=== PATIENT | female | born 1955 | race Caucasian/White ===

== ENCOUNTER 2016-10-10 13:42 | Emergency (ER) | payer OTHER ==
[2016-10-10 13:48] VITALS: TEMP 97.9
[2016-10-10 14:53] LABS: COLOR PALE YELLOW; LEUKOCYTE ESTERASE,URINE TRACE (NEGATIVE); NITRITE,URINE NEGATIVE (NEGATIVE)
[2016-10-10] MEDS ORDERED: NS 1,000 ML IV ONE (14:53)
[2016-10-10] MEDS ORDERED: ONDANSETRON 4 MG/2 ML VIAL IVP ONE (14:53)
--- NOTE | 2016-10-10 14:59 | EDPHY ---
HPI/HX/ROS/PE/MDM Narrative: CHIEF COMPLAINT: Chronic flank pain HPI: The patient is a 61-year-old female with extensive history of chronic pain related to frequent nephrolithiasis and medullary sponge kidney. She has been admitted to the hospital several times for issues related to this. She reports approximately 2 weeks of severe pain which he describes as peeing razor blades and and vomiting. She states she was seen by her primary physician Dr. Ephraim Navas, who diagnosed her with UTI and started her on a week long course of Cipro. She states she has been compliant with this but her symptoms have not improved. She denies fever. She states pain is bilateral. She denies trauma. She states this pain is similar to prior chronic pain. She states that she switched to a new paint preparer who has rearranged her pain control regimen approximately 3 weeks ago. She is currently using fentanyl patches with oxycodone for breakthrough pain. REVIEW OF SYSTEMS: Aside from elements discussed in the HPI, a comprehensive 10-point review of systems was reviewed and is negative. PMH: Includes: Medullary sponge kidney, chronic pain syndrome, thyroid disease. SOCIAL HISTORY: . Primary physicians Dr. Dee. Patient denies drug abuse. PHYSICAL EXAM: General:Patient is alert, in no acute distress. She alternates between moaning and crying with rapid speech with no apparent discomfort. ENT:Eyes are normal to inspection. ENT inspection normal. Neck: Normal inspection. Full range of motion. Respiratory:No respiratory distress. Breath sounds normal bilaterally. Cardiovascular: Regular rate and rhythm. Strong peripheral pulses. Normal cap refill. Abdomen:The abdomen is nontender to palpation. There are no peritoneal signs. There are normal bowel sounds. Back: Extensive ecchymosis is noted primarily to the right flank, which patient states is secondary to heating pad use. Diffuse generalized tenderness to palpation. Stands and gets out of bed without apparent discomfort or limited ROM. Skin: Normal color. No rash. Warm and dry. Extremities: Normal appearance. Full range of motion. Neuro: Oriented x3. Normal motor function. Normal sensory function. ED Course: Reviewed urine culture report from [facility] dated 10/01/16. Results showed pansensitive e.coli. Study: Ultrasound of the: Kidneys Indication: Flank pain Results: US scan of the kidneys was obtained. The results of the study are 1. No evidence of hydronephrosis. 2. Bilateral nonobstructive nephrolithiasis. 3. No significant post void residual. The study was read by the radiologist, Dr. Avila. I viewed the images myself on the PACS system. MDM: This patient presents with exacerbation of chronic flank pain. According to records received from her primary care physician's office, she apparently did have a urinary tract infection approximately 10 days ago, but this grew out pansensitive E coli and she was treated with Cipro. Her urinalysis today shows only trace leukocyte esterase and I do not think that she has a lakhwinder urinary tract infection at this point. She has not completed her course of Cipro. We will send the urine for culture. The patient underwent an ultrasound which reveals no sign of urinary obstruction. I explained all these findings to the patient in detail but she is very upset. It sounds like she is primarily upset with the fact that her new pain specialist has altered her pain regimen. She has requested additional pain medicine but I explained to her that it is against our policy to prescribe narcotics for chronic pain patients and that she would need to go through her pain specialist for any additions or changes. She is very upset and states that this all visit was a waste of time. I explained to her and her that I disagreed, that it is important that we ensured that she does not have urosepsis or urinary obstruction, which we were able to do. She again asked for additional pain medicine. She again alternated between moaning and complaining of severe pain followed by completely normal affect. After again refusing requests for additional pain medicine she then demanded that we speak to someone in the hospital about the fact that apparently no one placed in allergy band on her arm. Following this episode, the nurse attempted to discharge patient but patient refused to leave the ED until she was given additional narcotics. This request was denied. The patient was disruptive and disrespectful to multiple staff members. - Data Points Laboratory Results: Laboratory Results 10/10/16 15:01 10/10/16 15:01 10/10/16 10/10/16 10/10/16 15: 15: 14:13 WBC 10.64 10^3/uL H 10^3/uL (3.80-9.50) RBC 5.62 10^6/uL H 10^6/uL (4.18-5.33) Hgb 17.0 g/dL H g/dL (12.6-16.3) Hct 49.8 % H % (38.0-47.0) MCV 88.6 fL fL (81.5-99.8) MCH 30.2 pg pg (27.9-34.1) MCHC 34.1 g/dL g/dL (32.4-36.7) RDW 13.7 % % (11.5-15.2) Plt Count 291 10^3/uL 10^3/uL (150-400) MPV 10.2 fL fL (8.7-11.7) Neut % (Auto) 64.8 % % (39.3-74.2) Lymph % (Auto) 27.6 % % (15.0-45.0) [place] % (Auto) 5.7 % % (4.5-13.0) Eos % (Auto) 0.7 % % (0.6-7.6) Baso % (Auto) 0.8 % % (0.3-1.7) Nucleat RBC Rel Count 0.0 % % (0.0-0.2) Absolute Neuts (auto) 6.89 10^3/uL H 10^3/uL (1.70-6.50) Absolute Lymphs (auto) 2.94 10^3/uL 10^3/uL (1.00-3.00) Absolute Monos (auto) 0.61 10^3/uL 10^3/uL (0.30-0.80) Absolute Eos (auto) 0.07 10^3/uL 10^3/uL (0.03-0.40) Absolute Basos (auto) 0.09 10^3/uL 10^3/uL (0.02-0.10) Absolute Nucleated RBC 0.00 10^3/uL 10^3/uL (0-0.01) Immature Gran % 0.4 % % (0.0-1.1) Immature Gran # 0.04 10^3/uL 10^3/uL (0.00-0.10) Sodium 143 mEq/L mEq/L (134-144) Potassium 3.8 mEq/L mEq/L (3.5-5.2) Chloride 107 mEq/L mEq/L (97-110) Carbon Dioxide 22 mEq/l mEq/l (22-31) Anion Gap 14 mEq/L mEq/L (8-16) BUN 6 mg/dL L mg/dL (7-23) Creatinine 0.8 mg/dL mg/dL (0.6-1.0) Estimated GFR > 60 Glucose 104 mg/dL H mg/dL (70-100) Calcium 10.7 mg/dL H mg/dL (8.5-10.4) Phosphorus 3.3 mg/dL mg/dL (2.5-4.5) Lipase 95.0 IU/L IU/L (23-300) Urine Color PALE YELLOW Urine Appearance CLEAR Urine pH 5.0 (5.0-7.5) Ur Specific [place] 1.003 (1.002-1.030) Urine Protein NEGATIVE (NEGATIVE) Urine Ketones NEGATIVE (NEGATIVE) Urine Blood NEGATIVE (NEGATIVE) Urine Nitrate NEGATIVE (NEGATIVE) Urine Bilirubin NEGATIVE (NEGATIVE) Urine Urobilinogen NEGATIVE EU EU (0.2-1.0) Ur Leukocyte Esterase TRACE H (NEGATIVE) Urine RBC 1-3 /hpf /hpf (0-3) Urine WBC 3-5 /hpf H /hpf (0-3) Ur Epithelial Cells TRACE /lpf /lpf (NONE-1+) Urine Bacteria TRACE /hpf H /hpf (NONE SEEN) Ur Culture Indicated? INDICATED H (NI) Urine Glucose NEGATIVE (NEGATIVE) Medications Given: Discontinued Medications Sodium Chloride (Ns) 1,000 mls @ 0 mls/hr IV ONCE ONE PRN Reason: Wide Open Stop: 10/10/16 14:54 Last Admin: 10/10/16 15:06 Dose: 1,000 mls Ondansetron HCl (Zofran) 4 mg IVP EDNOW ONE Stop: 10/10/16 14:54 Last Admin: 10/10/16 15:07 Dose: 4 mg Oxycodone/Acetaminophen (Percocet 5/325) 2 tab PO EDNOW ONE Stop: 10/10/16 16:55 Last Admin: 10/10/16 17:08 Dose: 2 tab General Time Seen by Provider: 10/10/16 14:38 Initial Vital Signs: Initial Vital Signs Temperature (C) 36.6 C 10/10/16 13:45 Heart Rate 120 H 10/10/16 13:45 Respiratory Rate 16 10/10/16 13:45 Blood Pressure 163/116 H 10/10/16 13:45 O2 Sat (%) 96 10/10/16 13:45 O2 Delivery Mode Room Air Allergies/Adverse Reactions: levofloxacin [From Levaquin] Allergy (Verified 10/10/16 13:43) Sulfa (Sulfonamide Antibiotics) Allergy (Verified 10/10/16 13:43) Home Medications: Medication Instructions Recorded Ibuprofen [Motrin (*)] 400 mg PO DAILY PRN 09/03/14 Levothyroxine [Synthroid 50 mcg 50 mcg PO DAILY06 09/03/14 (*)] Diazepam [Valium 10 MG (*)] 10 mg PO Q6 #45 tab 05/27/16 Promethazine HCl [Phenergan 25mg 25 - 50 mg PO Q6 #90 tab 05/27/16 (*)] oxyCODONE IR [Oxycodone Ir (*)] 30 mg PO Q8 #45 tab 05/27/16 Departure - Departure Disposition: Home, Routine, Self-Care Clinical Impression: Chronic pain, Nephrolithiasis Condition: Good Instructions: Chronic Pain (ED) Additional Instructions: Follow-up with your paint preparer this evening if possible. Follow -up with your primary doctor on Friday. Return to the ED for fever, difficulty urinating or other concerns. Referrals: Ephraim Navas MD [Primary Care Provider] - As per Instructions
[2016-10-10 15:11] LABS: % IMMATURE GRANULYOCYTES 0.4 % (0.0-1.1); ABSOLUTE IMMATURE GRANULOCYTES 0.04 10^3/uL (0.00-0.10); ADD DIFF? NO; ADD MORPH? NO; ADD SCAN? NO; ATYPICAL LYMPHOCYTE FLAG 0 (0-99); FRAGMENT RBC FLAG 0 (0-99); HEMATOCRIT 49.8 % (38.0-47.0); LEFT SHIFT FLG 0 (0-99); LIPEMIA HEMOLYSIS FLAG 90 (0-99); MEAN CELL HEMOGLOBIN 30.2 pg (27.9-34.1); MEAN CELL HEMOGLOBIN CONCENTR. 34.1 g/dL (32.4-36.7); MEAN CELL VOLUME 88.6 fL (81.5-99.8); MEAN PLATELET VOLUME 10.2 fL (8.7-11.7); PLATELET CLUMPS FLAG 0 (0-99); PLATELET COUNT 291 10^3/uL (150-400); RED BLOOD CELL COUNT 5.62 10^6/uL (4.18-5.33); RED CELL DISTRIBUTION WIDTH 13.7 % (11.5-15.2)
[2016-10-10 15:11] LABS: BACTERIA TRACE /hpf (NONE SEEN)
[2016-10-10 15:39] LABS: ANION GAP 14 mEq/L (8-16); CALCIUM 10.7 mg/dL (8.5-10.4); CARBON DIOXIDE 22 mEq/l (22-31); CHLORIDE 107 mEq/L (97-110); CREATININE 0.8 mg/dL (0.6-1.0); GLOMERULAR FILTRATION RATE > 60; GLUCOSE 104 mg/dL (70-100); POTASSIUM 3.8 mEq/L (3.5-5.2); SODIUM 143 mEq/L (134-144)
[2016-10-10] MEDS ORDERED: OXYCODONE/APAP 5/325 TAB PO ONE (16:54)
[2016-10-10 17:27] VITALS: BP 153/102; PULSE 107; RESP 18; O2SAT 94
== END 2016-10-10 17:27 | disposition home or self-care (01) ==
DX: N20.0 Calculus of kidney (principal)
CPT/HCPCS: 76770; J2405

== ENCOUNTER → 2018-02-13 | Outpatient (CLI) | payer OTHER | LOC: FIMAGING 12:35 | PROVIDERS: ATTEND Family Medicine | DX: N63.10 Unspecified lump in the right breast, unspecified quadrant (principal) ==

== ENCOUNTER → 2018-03-20 | Outpatient (CLI) | payer OTHER ==
[~2018-03-20] MED LIST: GADOBUTROL 10 ML VIAL IVP ONE
== END ==
LOC: FIMAGING 11:46
PROVIDERS: ATTEND Family Medicine
DX: C50.911 Malignant neoplasm of unspecified site of right female breast (principal)
CPT/HCPCS: 0159T; A9585; C8908; 82565-PO

== ENCOUNTER 2018-06-26 08:26 | Inpatient (IN) | payer OTHER ==
--- NOTE | 2018-06-26 09:00 | EDPHY ---
H & P Time Seen by Provider: 06/26/18 08:41 HPI/ROS: CHIEF COMPLAINT: Nausea, fever, body pain HISTORY OF PRESENT ILLNESS: Patient is a 63-year-old female with multiple medical problems. She was diagnosed with breast cancer and is status post lumpectomy in March of 2018. She is currently undergoing chemotherapy every other Friday. She undergoes radiation therapy 1 day a week. Patient states that she normally feels bad after her chemotherapy but this is more pronounced than normal. She had a temperature to 100.5. She had a mild nonproductive cough. She is not short of breath. She has lower abdominal discomfort. She states"I think the medication is constipating me."Patient has had nausea with no vomiting. No dysuria or frequency. REVIEW OF SYSTEMS: 10 systems were reveiwed and are negative with the exception of the elements mentioned in the history of present illness. CHIEF COMPLAINT: Past Medical/Surgical History: Includes medullary sponge kidney, chronic pain syndrome, thyroid disease, UTI, nephrolithiasis, breast CA Social history: . PSH: [facility], ortho Oncologist Dr. Terrence Nam. [phone] Smoking Status: Never smoked Physical Exam: GENERAL: No acute distress, alert. HEENT: Eyes normal to inspection, normal pharynx, no signs of dehydration. NECK: Normal, supple. RESPIRATORY: Clear to auscultation bilaterally, no rales, rhonchi or wheezing. CVS: Regular rate and rhythm, no rubs, murmurs, or gallops. Chest: The patient's right breast incision site is clean dry and intact with no surrounding erythema. Her right axilla site is clean dry and intact. She has a port on the left anterior chest which is clean dry and intact with no surrounding erythema. ABDOMEN: Soft, nontender, nondistended, no organomegaly. BACK: Normal to inspection, no CVA tenderness. SKIN: Normal color, no rash, warm, dry. No pallor. EXTREMITIES: No pedal edema, no calf tenderness, no Homans sign or cords, no joint swelling. NEURO/PSYCH: Alert and oriented, normal mood and affect, normal motor sensory exam. No obvious cranial nerve deficit. Constitutional: Initial Vital Signs Temperature (C) 36.7 C 06/26/18 08:30 Heart Rate 128 H 06/26/18 08:30 Respiratory Rate 20 06/26/18 08:30 Blood Pressure 108/89 H 06/26/18 08:30 O2 Sat (%) 100 06/26/18 08:30 O2 Delivery Mode Room Air Allergies/Adverse Reactions: levofloxacin [From Levaquin] Allergy (Verified 06/26/18 08:27) Sulfa (Sulfonamide Antibiotics) Allergy (Verified 06/26/18 08:27) Home Medications: Medication Instructions Recorded Ibuprofen [Motrin (*)] 400 mg PO DAILY PRN 09/03/14 Levothyroxine [Synthroid 50 mcg 50 mcg PO DAILY06 09/03/14 (*)] Diazepam [Valium 10 MG (*)] 10 mg PO Q6 #45 tab 05/27/16 Promethazine HCl [Phenergan 25mg 25 - 50 mg PO Q6 #90 tab 05/27/16 (*)] Ativan 06/26/18 Medical Decision Making - Diagnostics Imaging Results: Imaging Impressions Chest X-Ray 06/26/18 10:10 Impression: Normal. No pneumonia or evidence for metastatic breast cancer. ED Course/Re-evaluation: In the emergency department I discussed possible etiologies with the patient. I answered all her questions. An IV was placed. Laboratory studies were obtained. On arrival the patient's temperature was 36.7 degrees. She was noted to be tachycardic at 128. She is given normal saline 1 L IV for hydration. I reviewed the patient's medical record from 10/10/2016. The patient states that normally her nausea is well controlled by Ativan and Compazine. However she ran out of these medications. She feels these may be relating to her symptoms. Patient states Zofran gives her a headache. She was given Ativan 1 mg IV. This will cover her nausea, mild anxiety, and potential for withdrawal. Patient's lactic acid is 2.0. Patient's chemistry panel is remarkable for a slightly low CO2. Patient's white count is low at 0.32. Differential is pending. Influenza is pending. Chest x-ray: Please refer the dictated report. No acute disease noted. On recheck the patient stated she initially felt better after receiving the Ativan but now has nausea once again. She was given Compazine 10 mg orally. Urine studies are unremarkable. I discussed the case with Dr. Nam who was her primary oncologist. He recommended the patient be observed. He recommended the patient be started on azithromycin for her temperature of 37.8 degrees and leukopenia. I discussed this with the patient. I answered all her questions. I discussed case with the hospitalist service. Of note, blood cultures are pending. I received a call back from Dr. Nam. He recommend the patient be given Neupogen 480 mcg subcu daily. I discussed this with the hospitalist service (Leonor) and informed her of 's recommendation Patient had a repeat episode of nausea. Phenergan 12.5 mg IV was given. Differential Diagnosis: My differential includes but is not limited to urinary tract infection, pyelonephritis, kidney stone, mass, malignancy, bacteremia, sepsis, obstruction , perforation, alcohol withdrawal, benzodiazepine withdrawal, electrolyte abnormality, sugar abnormality, anxiety - Data Points Laboratory Results: Laboratory Results 06/26/18 09:26 06/26/18 09:26 06/26/18 06/26/18 06/26/18 11:00 10:05 09:26 WBC RBC Hgb Hct MCV MCH MCHC RDW Plt Count MPV Neut % (Auto) Lymph % (Auto) [place] % (Auto) Eos % (Auto) Baso % (Auto) Nucleat RBC Rel Count Absolute Neuts (auto) Absolute Lymphs (auto) Absolute Monos (auto) Absolute Eos (auto) Absolute Basos (auto) Absolute Nucleated RBC Immature Gran % Seg Neutrophils % Lymphocytes % Monocytes % Immature Gran # Absolute Seg Neuts Absolute Lymphocytes Absolute Monocytes Toxic Granulation Platelet Estimate Microcytic Cells Smear Review By PT 13.5 SEC SEC (12.0-15.0) INR 1.01 (0.83-1.16) APTT 27.1 SEC SEC (23.0-38.0) VBG Lactic Acid Sodium Potassium Chloride Carbon Dioxide Anion Gap BUN Creatinine Estimated GFR Glucose Calcium Total Bilirubin Conjugated Bilirubin Unconjugated Bilirubin AST ALT Alkaline Phosphatase Total Protein Albumin Lipase Urine Color YELLOW Urine Appearance CLEAR Urine pH 6.0 (5.0-7.5) Ur Specific [place] 1.010 (1.002-1.030) Urine Protein NEGATIVE (NEGATIVE) Urine Ketones 1+ H (NEGATIVE) Urine Blood NEGATIVE (NEGATIVE) Urine Nitrate NEGATIVE (NEGATIVE) Urine Bilirubin NEGATIVE (NEGATIVE) Urine Urobilinogen 2.0 EU H EU (0.2-1.0) Ur Leukocyte Esterase NEGATIVE (NEGATIVE) Urine RBC NONE SEEN /hpf /hpf (0-3) Urine WBC 1-3 /hpf /hpf (0-3) Ur Epithelial Cells TRACE /lpf /lpf (NONE-1+) Urine Mucus TRACE /lpf /lpf (NONE-1+) Urine Glucose NEGATIVE (NEGATIVE) Nasal Influenza A PCR NEGATIVE FOR FLU A (NEGATIVE) Nasal Influenza B PCR NEGATIVE FOR FLU B (NEGATIVE) 06/26/18 06/26/18 06/26/18 09:26 09:26 09:26 WBC 0.32 10^3/uL L* 10^3/uL (3.80-9.50) RBC 4.10 10^6/uL L 10^6/uL (4.18-5.33) Hgb 12.3 g/dL L g/dL (12.6-16.3) Hct 35.0 % L % (38.0-47.0) MCV 85.4 fL fL (81.5-99.8) MCH 30.0 pg pg (27.9-34.1) MCHC 35.1 g/dL g/dL (32.4-36.7) RDW 13.0 % % (11.5-15.2) Plt Count 210 10^3/uL 10^3/uL (150-400) MPV 10.7 fL fL (8.7-11.7) Neut % (Auto) Not Reported Lymph % (Auto) Not Reported [place] % (Auto) Not Reported Eos % (Auto) Not Reported Baso % (Auto) Not Reported Nucleat RBC Rel Count Not Reported Absolute Neuts (auto) Not Reported Absolute Lymphs (auto) Not Reported Absolute Monos (auto) Not Reported Absolute Eos (auto) Not Reported Absolute Basos (auto) Not Reported Absolute Nucleated RBC Not Reported Immature Gran % Not Reported Seg Neutrophils % 14.5 % % Lymphocytes % 75.9 % % Monocytes % 9.6 % % Immature Gran # Not Reported Absolute Seg Neuts 0.05 10^3/uL L 10^3/uL (1.70-6.50) Absolute Lymphocytes 0.24 10^3/uL L 10^3/uL (1.00-3.00) Absolute Monocytes 0.03 10^3/uL L 10^3/uL (0.30-0.80) Toxic Granulation PRESENT H Platelet Estimate ADEQUATE (ADEQ) Microcytic Cells 1+ H Smear Review By Pending PT INR APTT VBG Lactic Acid 2.0 mmol/L mmol/L (0.7-2.1) Sodium 136 mEq/L mEq/L (135-145) Potassium 3.8 mEq/L mEq/L (3.3-5.0) Chloride 105 mEq/L mEq/L (97-110) Carbon Dioxide 19 mEq/l L mEq/l (22-31) Anion Gap 12 mEq/L mEq/L (6-14) BUN 9 mg/dL mg/dL (7-23) Creatinine 0.5 mg/dL L mg/dL (0.6-1.0) Estimated GFR > 60 Glucose 110 mg/dL H mg/dL (70-100) Calcium 9.7 mg/dL mg/dL (8.5-10.4) Total Bilirubin 1.3 mg/dL mg/dL (0.1-1.4) Conjugated Bilirubin 0.4 mg/dL mg/dL (0.0-0.5) Unconjugated Bilirubin 0.9 mg/dL mg/dL (0.0-1.1) AST 13 IU/L L IU/L (14-46) ALT 22 IU/L IU/L (9-52) Alkaline Phosphatase 119 IU/L IU/L (38-126) Total Protein 6.8 g/dL g/dL (6.3-8.2) Albumin 4.1 g/dL g/dL (3.5-5.0) Lipase 37 IU/L IU/L (23-300) Urine Color Urine Appearance Urine pH Ur Specific [place] Urine Protein Urine Ketones Urine Blood Urine Nitrate Urine Bilirubin Urine Urobilinogen Ur Leukocyte Esterase Urine RBC Urine WBC Ur Epithelial Cells Urine Mucus Urine Glucose Nasal Influenza A PCR Nasal Influenza B PCR Medications Given: Discontinued Medications Sodium Chloride (Ns) 1,000 mls @ 0 mls/hr IV EDNOW ONE; Wide Open PRN Reason: Protocol Stop: 06/26/18 09:06 Last Admin: 06/26/18 09:28 Dose: 1,000 mls Azithromycin 500 mg/ Sodium (Chloride) 255 mls @ 255 mls/hr IV EDNOW ONE PRN Reason: Protocol Stop: 06/26/18 12:41 Last Admin: 06/26/18 12:08 Dose: 255 mls Lorazepam (Ativan Injection) 1 mg IVP EDNOW ONE Stop: 06/26/18 09:13 Last Admin: 06/26/18 09:31 Dose: 1 mg Prochlorperazine Maleate (Compazine) 10 mg PO ONCE ONE Stop: 06/26/18 11:15 Last Admin: 06/26/18 11:30 Dose: 10 mg Promethazine HCl (Phenergan) 12.5 mg IVP ONCE ONE Stop: 06/26/18 12:42 Last Admin: 06/26/18 12:45 Dose: 12.5 mg Departure - Departure Disposition: [facility] Acute Clinical Impression: Fever Qualifiers: Fever type: unspecified Qualified Code(s): R50.9 - Fever, unspecified Leukopenia Qualifiers: Leukopenia type: unspecified Qualified Code(s): D72.819 - Decreased white blood cell count, unspecified Condition: Good
[2018-06-26] MEDS ORDERED: NS 1,000 ML IV ONE (09:05)
[2018-06-26] MEDS ORDERED: LORazepam 2 MG/ML INJ IVP ONE (09:12)
[2018-06-26 09:43] LABS: INR 1.01 (0.83-1.16); PROTIME(PATIENT) 13.5 SEC (12.0-15.0)
[2018-06-26] MEDS ORDERED: PROCHLORPERAZINE MALEATE 10 MG TAB PO ONE (11:14)
[2018-06-26 11:35] LABS: PLATELET COUNT 210 10^3/uL (150-400)
[2018-06-26] MEDS ORDERED: AZITHROMYCIN IV 500 MG in NS 250 ML IV ONE (11:42)
[2018-06-26] MEDS ORDERED: ONDANSETRON 4 MG/2 ML VIAL IVP PRN (12:10)
[2018-06-26] MEDS ORDERED: ONDANSETRON DISINTEGRATING 4 MG TAB PO PRN (12:10)
[2018-06-26] MEDS ORDERED: PROMETHAZINE HCL 25 MG/ML INJ IVP ONE (12:41)
[2018-06-26] MEDS ORDERED: PROMETHAZINE HCL 25 MG/ML INJ ONE (12:44)
[2018-06-26] MEDS ORDERED: DIAZEPAM 10 MG TAB PO PRN (13:03)
[2018-06-26] MEDS ORDERED: CYCLOBENZAPRINE 10 MG TAB PO PRN (13:03)
--- NOTE | 2018-06-26 13:14 | PDCONSULT ---
Clinical Courier Note: Requesting provider: Bruna Cooper Reason for consult: Neutropenic fever Outpatient oncology: Dr. 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 She is being treated by Dr. Terrence Nam for her breast cancer. She initially presented back in February of 2018 when she self palpated a right sided breast mass. U/S bx showed a ILC low ER positive, pr negative, her-2 negative. She underwent a lumpectomy and SLNBX that showed a ER 1.5%, VA negative, HER2 negative, KI67 23%. Oncotype score was 30. She was dispositioned to ddAC for which she received 2 cycles the last of which was 06/19/18 with growth factor support. She presented to [facility] ER with fever up to 100.5F at home and a nonproductive cough. She has significant sinus drainage and post nasal drip. This is accompanied by headaches that she states are in the the posterior portion of her head bilaterally. She's had difficulties with nausea and mucositis. She's had decreased PO intake included decreased fluids. PMedical and Surgical History: Right-sided breast cancer as per above. Congential medullary sponge kidney Bilateral nephrolithiasis Hiatal hernia Numerous UTI's Hypothyroidism Social History: Never smoker. She is . They live in [facility]. FH: Maternal GM hx of DCIS. Mother with RCC age 59. Allergies: Levaquin, sulfa ROS: A 12 point ROS was obtained and otherwise negative Meds: Reviewed in EMR Physical: Temp Pulse Resp BP Pulse Ox 37.9 C 106 H 18 119/87 H 97 06/26/18 11:31 06/26/18 11:31 06/26/18 11:31 06/26/18 11:31 06/26/18 11:31 General: Thin, pleasant, conversant, at bedside HEENT: Dry mucosa, mass noted on the roof of her mouth (congential), no thrush, EOMI, PERRLA CV: RRR no m/g/r Pulm: CTAB GI: Soft, NT, ND BS+ Ext: Left sided infusaport in place, nontender nondistended Breast: Right sided lumpectomy incision is clean and well healed. Right sided SLN healed. Skin: No skin lesions Psych: Appropriate affect Neuro: Moving all ext LABORATORY 06/26/18 06/26/18 06/26/18 11:00 10:05 09:26 WBC RBC Hgb Hct MCV MCH MCHC RDW Plt Count MPV Neut % (Auto) Lymph % (Auto) [place] % (Auto) Eos % (Auto) Baso % (Auto) Nucleat RBC Rel Count Absolute Neuts (auto) Absolute Lymphs (auto) Absolute Monos (auto) Absolute Eos (auto) Absolute Basos (auto) Absolute Nucleated RBC Immature Gran % Seg Neutrophils % Lymphocytes % Monocytes % Immature Gran # Absolute Seg Neuts Absolute Lymphocytes Absolute Monocytes Toxic Granulation Platelet Estimate Microcytic Cells Smear Review By PT 13.5 SEC SEC (12.0-15.0) INR 1.01 (0.83-1.16) APTT 27.1 SEC SEC (23.0-38.0) VBG Lactic Acid Sodium Potassium Chloride Carbon Dioxide Anion Gap BUN Creatinine Estimated GFR Glucose Calcium Total Bilirubin Conjugated Bilirubin Unconjugated Bilirubin AST ALT Alkaline Phosphatase Total Protein Albumin Lipase Urine Color YELLOW Urine Appearance CLEAR Urine pH 6.0 (5.0-7.5) Ur Specific [place] 1.010 (1.002-1.030) Urine Protein NEGATIVE (NEGATIVE) Urine Ketones 1+ H (NEGATIVE) Urine Blood NEGATIVE (NEGATIVE) Urine Nitrate NEGATIVE (NEGATIVE) Urine Bilirubin NEGATIVE (NEGATIVE) Urine Urobilinogen 2.0 EU H EU (0.2-1.0) Ur Leukocyte Esterase NEGATIVE (NEGATIVE) Urine RBC NONE SEEN /hpf /hpf (0-3) Urine WBC 1-3 /hpf /hpf (0-3) Ur Epithelial Cells TRACE /lpf /lpf (NONE-1+) Urine Mucus TRACE /lpf /lpf (NONE-1+) Urine Glucose NEGATIVE (NEGATIVE) Nasal Influenza A PCR NEGATIVE FOR FLU A (NEGATIVE) Nasal Influenza B PCR NEGATIVE FOR FLU B (NEGATIVE) 06/26/18 06/26/18 06/26/18 09:26 09:26 09:26 WBC 0.32 10^3/uL L* 10^3/uL (3.80-9.50) RBC 4.10 10^6/uL L 10^6/uL (4.18-5.33) Hgb 12.3 g/dL L g/dL (12.6-16.3) Hct 35.0 % L % (38.0-47.0) MCV 85.4 fL fL (81.5-99.8) MCH 30.0 pg pg (27.9-34.1) MCHC 35.1 g/dL g/dL (32.4-36.7) RDW 13.0 % % (11.5-15.2) Plt Count 210 10^3/uL 10^3/uL (150-400) MPV 10.7 fL fL (8.7-11.7) Neut % (Auto) Not Reported Lymph % (Auto) Not Reported [place] % (Auto) Not Reported Eos % (Auto) Not Reported Baso % (Auto) Not Reported Nucleat RBC Rel Count Not Reported Absolute Neuts (auto) Not Reported Absolute Lymphs (auto) Not Reported Absolute Monos (auto) Not Reported Absolute Eos (auto) Not Reported Absolute Basos (auto) Not Reported Absolute Nucleated RBC Not Reported Immature Gran % Not Reported Seg Neutrophils % 14.5 % % Lymphocytes % 75.9 % % Monocytes % 9.6 % % Immature Gran # Not Reported Absolute Seg Neuts 0.05 10^3/uL L 10^3/uL (1.70-6.50) Absolute Lymphocytes 0.24 10^3/uL L 10^3/uL (1.00-3.00) Absolute Monocytes 0.03 10^3/uL L 10^3/uL (0.30-0.80) Toxic Granulation PRESENT H Platelet Estimate ADEQUATE (ADEQ) Microcytic Cells 1+ H Smear Review By Pending PT INR APTT VBG Lactic Acid 2.0 mmol/L mmol/L (0.7-2.1) Sodium 136 mEq/L mEq/L (135-145) Potassium 3.8 mEq/L mEq/L (3.3-5.0) Chloride 105 mEq/L mEq/L (97-110) Carbon Dioxide 19 mEq/l L mEq/l (22-31) Anion Gap 12 mEq/L mEq/L (6-14) BUN 9 mg/dL mg/dL (7-23) Creatinine 0.5 mg/dL L mg/dL (0.6-1.0) Estimated GFR > 60 Glucose 110 mg/dL H mg/dL (70-100) Calcium 9.7 mg/dL mg/dL (8.5-10.4) Total Bilirubin 1.3 mg/dL mg/dL (0.1-1.4) Conjugated Bilirubin 0.4 mg/dL mg/dL (0.0-0.5) Unconjugated Bilirubin 0.9 mg/dL mg/dL (0.0-1.1) AST 13 IU/L L IU/L (14-46) ALT 22 IU/L IU/L (9-52) Alkaline Phosphatase 119 IU/L IU/L (38-126) Total Protein 6.8 g/dL g/dL (6.3-8.2) Albumin 4.1 g/dL g/dL (3.5-5.0) Lipase 37 IU/L IU/L (23-300) Urine Color Urine Appearance Urine pH Ur Specific [place] Urine Protein Urine Ketones Urine Blood Urine Nitrate Urine Bilirubin Urine Urobilinogen Ur Leukocyte Esterase Urine RBC Urine WBC Ur Epithelial Cells Urine Mucus Urine Glucose Nasal Influenza A PCR Nasal Influenza B PCR Assessment and plan: Daxa is a 63 yo female with hx of triple negative (ER 1%) right sided breast ILC currently on ddAC s/p 2 cycles admitted for neutropenic fever. 1. Neutropenic fever: She received C2D1 of ddAC 06/19/2018 with growth factor support. She has history of multiple urinary tract infections prior to her breast cancer diagnosis. I agree with admission and treatment with cefepime and follow her fever curve. If she remains febrile or with hemodynamic changes, I would add vancomycin. If she continues to have worsening sinusitis, would obtain a CT sinus. I suspect her ANC will improve quickly alongside her symptoms. -Start cefepime -Follow blood + urine cultures + respiratory panel 2. Mucositis: Would recommend triple mix alongside IVF support. No evidence of thrush. Likely chemotherapy related. 3. Sinusitis: See #1.
--- NOTE | 2018-06-26 13:59 | PDGENHP ---
<Kate Cooper - Last Filed: 06/26/18 16:19> History and Physical - Chief Complaint Nausea, fever - History of Present Illness CC: Neutropenic Fever + positive for parainfluenza HPI: 63 y/o female recently diagnosed in March 2018 with right invasive lobular breast carcinoma and s/p lobectomy currently undergoing chemotherapy and radiation presents with nausea and fever. Her chemotherapy is every other Friday for 4 weeks and she has completed 2 sessions. Her last session was last Friday and she endorses experiencing nausea but Ativan and Compazine usually assist her. This time around, she feels nauseous to the point of vomiting but has not, feverish, and body aches. Her , Hiro, was recently sick with "a really bad cold." She endorses post-nasal drip, non productive cough, and sinus pressure. Also reports poor oral intake because her mouth feels "raw" caused from the chemotherapy. Past Medical/Surgical History 1. Right breast cancer - malignant invasive lobular carcinoma. S/p lobectomy ( March 2018) 2. Medullary Sponge Kidney w/ chronic nephrolithiasis bilaterally (diagnosed in 1999) 3. Hypothyroidism 4. Esophageal spasm 5. Chronic pain (no longer uses opiates. Uses cannabis and CBD) Family History: Mother with renal cell carcinoma and grandmother with stomach cancer Vital Signs 119/87 106 HR 18 Respirations 97% RA 37.8c History Information - Allergies/Home Medication List Allergies/Adverse Reactions: levofloxacin [From Levaquin] Allergy (Verified 06/26/18 13:03) Vomiting Sulfa (Sulfonamide Antibiotics) Allergy (Verified 06/26/18 13:03) Vomiting Home Medications: Levothyroxine [Synthroid 50 mcg (*)] 50 mcg PO DAILY06 09/03/14 [Last Taken ] Cholecalciferol Vit D3 [Vitamin D3 (*)] 1,000 units PO DAILY 06/26/18 [Last Taken Unknown] Cyclobenzaprine [Flexeril 10 MG (*)] 10 mg PO TID PRN 06/26/18 [Last Taken Unknown] Diazepam [Valium 10 MG (*)] 10 mg PO TID PRN 06/26/18 [Last Taken 06/26/18 02:00 ] Herbals/Supplements -Info Only 1 ea PO DAILY 06/26/18 [Last Taken Unknown] LORazepam [Ativan (*)] 1 mg PO Q8HRS PRN 06/26/18 [Last Taken Unknown] Promethazine HCl [Phenergan 25mg (*)] 25 - 50 mg PO Q8HRS PRN 06/26/18 [Last Taken 06/26/18] I have personally reviewed and updated: family history, medical history, social history, surgical history Past Medical History: See HPI List - Surgical History Additional surgical history: See HPI list - Family History Additional family history: See HPI list - Social History Smoking Status: Never smoked Alcohol Use: None Drug Use: Marijuana Review of Systems Review of Systems: ROS: 10pt was reviewed & negative except for what was stated in HPI & below Constitutional: Reports: fever, malaise EENMT: Reports: other ("Raw mouth") Cardiac: Reports: no symptoms Respiratory: Reports: cough (Non-productive, c/o post-nasal drip) Gastrointestinal: Reports: constipation Genitourinary: Reports: no symptoms Muscolosketal: Reports: no symptoms Skin: Reports: no symptoms Neurological: Reports: emotional problems, headache Hematologic/Lymphatic: Reports: no symptoms Immunologic/Allergy: Reports: other (See allergy list) Physical Exam Physical Exam: Lab data and imaging reviewed CXR: No acute process, no PNA WBC: 0.32 ANC: .05 Respiratory PCR: + parainfluenza Temp Pulse Resp BP Pulse Ox 37.9 C 106 H 18 119/87 H 97 06/26/18 11:31 06/26/18 11:31 06/26/18 11:31 06/26/18 11:31 06/26/18 11:31 Constitutional: uncomfortable Eyes: PERRL, anicteric sclera, EOMI Ears, Nose, Mouth, Throat: dry mucous membranes, other (Palate has large lesion that per the pt, has been there since childhood and does not cause pain. Sinus pressure and tenderness) Cardiovascular: regular rate and rhythym, no murmur, rub, or gallop, tachycardia , No edema Peripheral Pulses: 2+: dorsalis-pedis (R) (Radial 2+), dorsalis-pedis (L) ( Radial 2+) Respiratory: no respiratory distress, no rales or rhonchi, clear to auscultation Gastrointestinal: normoactive bowel sounds, no palpable masses, tenderness Genitourinary: no bladder fullness, no bladder tenderness Skin: warm, normal color, no rashes or abrasions, no fluctuance, no induration, No mottled Musculoskeletal: full muscle strength, no muscle tenderness, normal joint ROM, no joint effusions Neurologic: sensation intact bilaterally, weakness, CN II-XII Intact Psychiatric: interacting appropriately, not encephalopathic, thought process linear, anxious Lymph, Heme, Immunologic: no cervical LAD, no supraclavicular LAD Lab Data & Imaging Review 06/26/18 09:26 06/26/18 09: WBC 0.32 10^3/uL (3.80-9.50) L* 06/26/18 09: RBC 4.10 10^6/uL (4.18-5.33) L 06/26/18: Hgb 12.3 g/dL (12.6-16.3) L 06/26/18: Hct 35.0 % (38.0-47.0) L 06/26/18: MCV 85.4 fL (81.5-99.8) 06/26/18 09: MCH 30.0 pg (27.9-34.1) 06/26/18 09: MCHC 35.1 g/dL (32.4-36.7) 06/26/18: RDW 13.0 % (11.5-15.2) 06/26/18 09: Plt Count 210 10^3/uL (150-400) 06/26/18: MPV 10.7 fL (8.7-11.7) 06/26/18 09: Neut % (Auto) Not Reported 06/26/18 09: Lymph % (Auto) Not Reported 06/26/18 09: [place] % (Auto) Not Reported 06/26/18: Eos % (Auto) Not Reported 06/26/18: Baso % (Auto) Not Reported 06/26/18 09: Nucleat RBC Rel Count Not Reported 06/26/18: Absolute Neuts (auto) Not Reported 06/26/18 09: Absolute Lymphs (auto) Not Reported 06/26/18: Absolute Monos (auto) Not Reported 06/26/18 09:26 Absolute Eos (auto) Not Reported 06/26/18 09:26 Absolute Basos (auto) Not Reported 06/26/18 09:26 Absolute Nucleated RBC Not Reported 06/26/18 09: Immature Gran % Not Reported 06/26/18 09:26 Seg Neutrophils % 14.5 % 06/26/18 09:26 Lymphocytes % 75.9 % 06/26/18 09: Monocytes % 9.6 % 06/26/18 09: Immature Gran # Not Reported 06/26/18 09: Absolute Seg Neuts 0.05 10^3/uL (1.70-6.50) L 06/26/18 09: Absolute Lymphocytes 0.24 10^3/uL (1.00-3.00) L 06/26/18 09: Absolute Monocytes 0.03 10^3/uL (0.30-0.80) L 06/26/18 09:26 Toxic Granulation PRESENT H 06/26/18 09:26 Platelet Estimate ADEQUATE (ADEQ) 06/26/18 09:26 Microcytic Cells 1+ H 06/26/18 09:26 PT 13.5 SEC (12.0-15.0) 06/26/18 09:26 INR 1.01 (0.83-1.16) 06/26/18 09:26 APTT 27.1 SEC (23.0-38.0) 06/26/18 09:26 VBG Lactic Acid 2.0 mmol/L (0.7-2.1) 06/26/18 09:26 Sodium 136 mEq/L (135-145) 06/26/18 09:26 Potassium 3.8 mEq/L (3.3-5.0) 06/26/18 09:26 Chloride 105 mEq/L (97-110) 06/26/18 09:26 Carbon Dioxide 19 mEq/l (22-31) L 06/26/18 09:26 Anion Gap 12 mEq/L (6-14) 06/26/18 09:26 BUN 9 mg/dL (7-23) 06/26/18 09:26 Creatinine 0.5 mg/dL (0.6-1.0) L 06/26/18 09:26 Estimated GFR > 60 06/26/18 09:26 Glucose 110 mg/dL (70-100) H 06/26/18 09:26 Calcium 9.7 mg/dL (8.5-10.4) 06/26/18 09:26 Total Bilirubin 1.3 mg/dL (0.1-1.4) 06/26/18 09:26 Conjugated Bilirubin 0.4 mg/dL (0.0-0.5) 06/26/18 09: Unconjugated Bilirubin 0.9 mg/dL (0.0-1.1) 06/26/18 09:26 AST 13 IU/L (14-46) L 06/26/18 09:26 ALT 22 IU/L (9-52) 06/26/18 09:26 Alkaline Phosphatase 119 IU/L (38-126) 06/26/18 09:26 Total Protein 6.8 g/dL (6.3-8.2) 06/26/18 09:26 Albumin 4.1 g/dL (3.5-5.0) 06/26/18 09: Lipase 37 IU/L (23-300) 06/26/18 09:26 Urine Color YELLOW 06/26/18 11:00 Urine Appearance CLEAR 06/26/18 11:00 Urine pH 6.0 (5.0-7.5) 06/26/18 11:00 Ur Specific [place] 1.010 (1.002-1.030) 06/26/18 11:00 Urine Protein NEGATIVE (NEGATIVE) 06/26/18 11:00 Urine Ketones 1+ (NEGATIVE) H 06/26/18 11:00 Urine Blood NEGATIVE (NEGATIVE) 06/26/18 11:00 Urine Nitrate NEGATIVE (NEGATIVE) 06/26/18 11:00 Urine Bilirubin NEGATIVE (NEGATIVE) 06/26/18 11:00 Urine Urobilinogen 2.0 EU (0.2-1.0) H 06/26/18 11:00 Ur Leukocyte Esterase NEGATIVE (NEGATIVE) 06/26/18 11:00 Urine RBC NONE SEEN /hpf (0-3) 06/26/18 11:00 Urine WBC 1-3 /hpf (0-3) 06/26/18 11:00 Ur Epithelial Cells TRACE /lpf (NONE-1+) 06/26/18 11:00 Urine Mucus TRACE /lpf (NONE-1+) 06/26/18 11:00 Urine Glucose NEGATIVE (NEGATIVE) 06/26/18 11:00 Nasal Influenza A PCR NEGATIVE FOR FLU A (NEGATIVE) 06/26/18 10:05 Nasal Influenza B PCR NEGATIVE FOR FLU B (NEGATIVE) 06/26/18 10:05 Assessment & Plan Plan: A/P 63 y/o breast cancer patient currently being treated with chemotherapy and radiation presents as neutropenic fever and has tested positive for parainfluenza. 1. Neutropenic fever: Oncology consulted and aware. Dr. Obando at bedside with pt. Will treat with cefepime and IV fluids. Blood and urine cultures pending. If febrile tonight, consider adding vancomycin. Her symptoms of post-nasal drip, tenderness around her sinuses, and febrile are consistent with sinusitis. 2. Sinusitis: see neutropenic fever 3. Nausea: anti-emetic PRN 4. Mucositis: she reports "raw mouth" because of the chemotherapy, poor oral intake and appetite. Magic mouthwash to assist. 5. Hypothyroidism: continue levothyroxine 6. Chronic kidney stones: continue home medications PRN. Diet: Regular VTE ppx: Lovenox subq Code: Full Dispo: Admit to obs <CharlesLucia - Last Filed: 06/27/18 12:17> History and Physical - History of Present Illness Review of Systems Review of Systems: Physical Exam Physical Exam: Temp Pulse Resp BP Pulse Ox 37.7 C 91 16 119/82 H 96 06/27/18 11:20 06/27/18 11:20 06/27/18 11:20 06/27/18 11:20 06/27/18 11:20 Lab Data & Imaging Review 06/27/18 04:18 06/26/18 09:26 WBC 0.51 10^3/uL (3.80-9.50) L* 06/27/18 04:18 RBC 3.51 10^6/uL (4.18-5.33) L 06/27/18 04:18 Hgb 10.4 g/dL (12.6-16.3) L 06/27/18 04:18 Hct 30.3 % (38.0-47.0) L 06/27/18 04:18 MCV 86.3 fL (81.5-99.8) 06/27/18 04:18 MCH 29.6 pg (27.9-34.1) 06/27/18 04:18 MCHC 34.3 g/dL (32.4-36.7) 06/27/18 04:18 RDW 13.2 % (11.5-15.2) 06/27/18 04:18 Plt Count 158 10^3/uL (150-400) 06/27/18 04:18 MPV 10.7 fL (8.7-11.7) 06/27/18 04:18 Neut % (Auto) Not Reported 06/27/18 04:18 Lymph % (Auto) Not Reported 06/27/18 04:18 [place] % (Auto) Not Reported 06/27/18 04:18 Eos % (Auto) Not Reported 06/27/18 04:18 Baso % (Auto) Not Reported 06/27/18 04:18 Nucleat RBC Rel Count Not Reported 06/27/18 04:18 Absolute Neuts (auto) Not Reported 06/27/18 04:18 Absolute Lymphs (auto) Not Reported 06/27/18 04:18 Absolute Monos (auto) Not Reported 06/27/18 04:18 Absolute Eos (auto) Not Reported 06/27/18 04:18 Absolute Basos (auto) Not Reported 06/27/18 04:18 Absolute Nucleated RBC Not Reported 06/27/18 04:18 Immature Gran % Not Reported 06/27/18 04:18 Seg Neutrophils % 5.6 % 06/27/18 04:18 Band Neutrophils % 4.1 % 06/27/18 04:18 Lymphocytes % 64.3 % 06/27/18 04:18 Monocytes % 8.2 % 06/27/18 04:18 Eosinophils % 0.0 % 06/27/18 04:18 Basophils % 15.8 % 06/27/18 04:18 Metamyelocytes % 1.0 % 06/27/18 04:18 Myelocytes % 0.0 % 06/27/18 04:18 Promyelocytes % 0.0 % 06/27/18 04:18 Blast Cells % 1.0 % 06/27/18 04:18 Immature Gran # Not Reported 06/27/18 04:18 Absolute Seg Neuts 0.03 10^3/uL (1.70-6.50) L 06/27/18 04:18 Absolute Band Neuts 0.02 10^3/uL (0.00-0.70) 06/27/18 04:18 Absolute Lymphocytes 0.33 10^3/uL (1.00-3.00) L 06/27/18 04:18 Absolute Monocytes 0.04 10^3/uL (0.30-0.80) L 06/27/18 04:18 Absolute Eosinophils 0.00 10^3/uL (0.03-0.40) L 06/27/18 04:18 Absolute Basophils 0.08 10^3/uL (0.02-0.10) 06/27/18 04:18 Absolute Metamyelocyte 0.01 10^3/mL (0.00-0.00) H 06/27/18 04:18 Absolute Myelocytes 0.00 10^3/mL (0.00-0.00) 06/27/18 04:18 Absolute Promyelocytes 0.00 10^3/uL (0.00-0.00) 06/27/18 04:18 Absolute Plasma Cells 0.00 10^3/uL (0.00-0.00) 06/27/18 04:18 Nucleated RBCs 0 /100 WBC (0-0) 06/27/18 04:18 Absolute Blast Cells 0.01 10^3/uL (0.00-0.00) H 06/27/18 04:18 Plasma Cells % 0.0 % 06/27/18 04:18 Toxic Granulation PRESENT H 06/27/18 04:18 Dohle Bodies PRESENT H 06/27/18 04:18 Platelet Estimate ADEQUATE (ADEQ) 06/27/18 04:18 Large Platelets PRESENT H 06/27/18 04:18 Microcytic Cells 1+ H 06/26/18 09:26 Echinocytes 1+ H 06/27/18 04:18 Keratocytes 1+ H 06/27/18 04:18 Schistocytes 1+ H 06/27/18 04:18 Smear Review By Nadia ARANA MD 06/27/18 04:18 PT 13.5 SEC (12.0-15.0) 06/26/18 09:26 INR 1.01 (0.83-1.16) 06/26/18 09:26 APTT 27.1 SEC (23.0-38.0) 06/26/18 09:26 VBG Lactic Acid 2.0 mmol/L (0.7-2.1) 06/26/18 09:26 Sodium 136 mEq/L (135-145) 06/26/18 09:26 Potassium 3.8 mEq/L (3.3-5.0) 06/26/18 09:26 Chloride 105 mEq/L (97-110) 06/26/18 09:26 Carbon Dioxide 19 mEq/l (22-31) L 06/26/18 09:26 Anion Gap 12 mEq/L (6-14) 06/26/18 09:26 BUN 9 mg/dL (7-23) 06/26/18 09:26 Creatinine 0.5 mg/dL (0.6-1.0) L 06/26/18 09:26 Estimated GFR > 60 06/26/18 09:26 Glucose 110 mg/dL (70-100) H 06/26/18 09:26 Calcium 9.7 mg/dL (8.5-10.4) 06/26/18 09:26 Total Bilirubin 1.3 mg/dL (0.1-1.4) 06/26/18 09:26 Conjugated Bilirubin 0.4 mg/dL (0.0-0.5) 06/26/18 09:26 Unconjugated Bilirubin 0.9 mg/dL (0.0-1.1) 06/26/18 09:26 AST 13 IU/L (14-46) L 06/26/18 09:26 ALT 22 IU/L (9-52) 06/26/18 09:26 Alkaline Phosphatase 119 IU/L (38-126) 06/26/18 09:26 Total Protein 6.8 g/dL (6.3-8.2) 06/26/18 09:26 Albumin 4.1 g/dL (3.5-5.0) 06/26/18 09:26 Lipase 37 IU/L (23-300) 06/26/18 09:26 Urine Color YELLOW 06/26/18 11:00 Urine Appearance CLEAR 06/26/18 11:00 Urine pH 6.0 (5.0-7.5) 06/26/18 11:00 Ur Specific [place] 1.010 (1.002-1.030) 06/26/18 11:00 Urine Protein NEGATIVE (NEGATIVE) 06/26/18 11:00 Urine Ketones 1+ (NEGATIVE) H 06/26/18 11:00 Urine Blood NEGATIVE (NEGATIVE) 06/26/18 11:00 Urine Nitrate NEGATIVE (NEGATIVE) 06/26/18 11:00 Urine Bilirubin NEGATIVE (NEGATIVE) 06/26/18 11:00 Urine Urobilinogen 2.0 EU (0.2-1.0) H 06/26/18 11:00 Ur Leukocyte Esterase NEGATIVE (NEGATIVE) 06/26/18 11:00 Urine RBC NONE SEEN /hpf (0-3) 06/26/18 11:00 Urine WBC 1-3 /hpf (0-3) 06/26/18 11:00 Ur Epithelial Cells TRACE /lpf (NONE-1+) 06/26/18 11:00 Urine Mucus TRACE /lpf (NONE-1+) 06/26/18 11:00 Urine Glucose NEGATIVE (NEGATIVE) 06/26/18 11:00 Nasal Influenza A PCR NEGATIVE FOR FLU A (NEGATIVE) 06/26/18 10:05 Nasal Influenza B PCR NEGATIVE FOR FLU B (NEGATIVE) 06/26/18 10:05 Assessment & Plan Assessment: Fever (Acute) Leukopenia (Acute) I evaluated and examined patient with Kate Cooper NP. I agree with A&P except as noted in my H&P.
[2018-06-26] MEDS: ACETAMINOPHEN 325 MG TAB PO PRN ×2 (14:16→20:02)
[2018-06-26] MEDS ORDERED: GUAIFENESIN/DM 10 ML UDCUP PO PRN (14:19)
[2018-06-26] MEDS: NS 1,000 ML IV SCH (15:06)
[2018-06-26] MEDS: CEFEPIME HCL 2 GM in NS 100 ML IV SCH ×2 (15:07→22:47)
--- NOTE | 2018-06-26 15:12 | ASMTCMCOM ---
CM Note CM Note Notes: Pt has been admitted with neutropenic fever and nausea. She has a hx of breast CA, oncology is following. She lives with her in [place]. CM will follow for any d/c needs. D/C plan: TBD, anticipate home independent Date Signed: 06/26/2018 03:11 PM Electronically Signed By:KOKI Crabtree
--- NOTE | 2018-06-26 15:29 | GHP ---
DATE OF ADMISSION: 06/26/2018 CHIEF COMPLAINT: Neutropenic fever. I evaluated and examined patient with Bruna Cooper, nurse practitioner. I agree with her note except as stated in my HPI. HISTORY OF PRESENT ILLNESS: A 63-year-old female recently diagnosed with breast cancer, T1c N0 M0, r ight-sided ILC, triple negative, status post lumpectomy. She is treated by Dr. Nam at [facility]. Last chemotherapy was on Friday. She has felt poorly since then with fatigue and fevers. S he had a temperature of 100.5 at home and a nonproductive cough. She has had some sinus drainage and postnasal drip and headache. Denies dysuria, diarrhea. She has had mucositis, painful lesions in h er mouth over the last couple of days. Endorses decreased p.o. intake. REVIEW OF SYSTEMS: I completed a 10-point review of systems, negative except as noted in HPI. PAST MEDICAL HISTORY: 1. Right-sided breast cancer as above. 2. Congenital medullary sponge kidney disease. 3. Chronic kidney stones. 4. Hypothyroidism. 5. Esophageal spasms. 6. Chronic pain. On opioids. 7. Hiatal hernia. PAST SURGICAL HISTORY: Lumpectomy. FAMILY HISTORY: Maternal grandmother with stomach cancer. Mother with renal cell carcinoma at age 5 9. ALLERGIES: Levofloxacin, sulfa. HOME MEDICATIONS: Promethazine, herbal supplement, vitamin D3, levothyroxine 50 mcg daily, Valium 10 p.o. t.i.d. p.r.n. uses daily, Flexeril 10 mg t.i.d. p.r.n., lorazepam 1 mg q.8 hours p.r.n. PHYSICAL EXAM: VITAL SIGNS: Temperature is 38.8; blood pressure is 119/86; heart rate in the 110s, now 92; respirations 16; 94% on room air. GENERAL: She is ill appearing, fatigued. HEENT: Dry muc ous membranes. Soft mass noted on the roof of her mouth; this is congenital, per patient. No thrush . Tenderness over frontal and maxillary sinuses. CV: Regular rate and rhythm. LUNGS: Clear. No crackles or wheezing. ABDOMEN: Soft, nontender, nondistended. Positive bowel sounds. : No Fole y. No suprapubic tenderness. MUSCULOSKELETAL: Right lumpectomy incision is clean, healed well. Le ft-sided port in place, nontender. No surrounding erythema. PSYCH: Alert and oriented x3. Tearful . NEURO: No focal deficits. LABS: WBC 0.32, hemoglobin 12, hematocrit 35, platelets 210. Coags within normal. Lactate is 2. S odium 136, potassium 3.8, chloride 105, carbon dioxide 19, BUN 9, creatinine 0.9, glucose 110, calciu m 9.7, total bilirubin 1.3, AST 13, ALT 22, lipase 37. UA is normal. MICROBIOLOGY: Positive parainfluenza virus type 4. Chest x-ray was personally reviewed by me. No evidence of opacity or effusion. ASSESSMENT/PLAN: 1. Neutropenic fever: Positive for parainfluenza 4. Will empirically continue on cefepime overnigh t given symptoms consistent with sinusitis. If fevers persist, can consider a CT of the head and add ing vancomycin. 2. Mucositis: Magic mouthwash. 3. Nausea: P.r.n. Zofran and Phenergan. 4. Chronic kidney stones: P.r.n. Flexeril. 5. Hypothyroidism: Levothyroxine. 6. Diet: Regular. 7. Deep venous thrombosis prophylaxis: Lovenox. 8. Disposition: Warrants observation admission given neutropenic fever requiring IV fluids, cefepim e. /[id number]/MODL
[2018-06-26] MEDS: LORazepam 1 MG TAB PO PRN (18:07)
[2018-06-26] MEDS: MBX SOLN 30 ML BOTTLE PO PRN (19:27)
[2018-06-26] MEDS: PROMETHAZINE HCL 25 MG TAB PO PRN (20:02)
[2018-06-26] MEDS: ENOXAPARIN 40 MG/0.4 ML SYR SC SCH (20:03)
[2018-06-26] MEDS ORDERED: BISACODYL 10 MG SUPP PR PRN (23:11)
[2018-06-26] MEDS ORDERED: POLYETHYLENE GLYCOL 3350 17 GM PKT PO PRN (23:11)
[2018-06-26] MEDS ORDERED: LACTULOSE 20 GM/30 ML UDCUP PO PRN (23:11)
[2018-06-26] MEDS ORDERED: MAGNESIUM HYDROXIDE 30 ML UDCUP PO PRN (23:11)
[2018-06-27] MEDS: MBX SOLN 30 ML BOTTLE PO PRN ×4 (02:08→17:32)
[2018-06-27] MEDS: NS 1,000 ML IV SCH ×2 (02:16→14:52)
[2018-06-27] MEDS: LORazepam 1 MG TAB PO PRN ×3 (02:20→20:36)
[2018-06-27] MEDS: LEVOTHYROXINE 50 MCG TAB PO SCH (04:34)
[2018-06-27] MEDS: ACETAMINOPHEN 325 MG TAB PO PRN ×2 (04:35→11:34)
[2018-06-27 04:52] LABS: PLATELET COUNT 158 10^3/uL (150-400)
[2018-06-27] MEDS: CEFEPIME HCL 2 GM in NS 100 ML IV SCH (06:04)
--- NOTE | 2018-06-27 08:12 | PDMN ---
Medical Necessity Medical necessity: Pt meets INPT criteria per MD as of 06/26/18 and MCG M-160 Sepsis or Other Febrile Illness (est. LOS >2 MN for eval/mgmt of neutropenic fever requiring IV fluids, IVABx; + for parainfluenza 4; hx breast cancer with chemotherapy 06/21).
[2018-06-27] MEDS: CHOLECALCIFEROL VIT D3 1,000 UNITS TAB PO SCH (08:58)
[2018-06-27] MEDS: SENNOSIDES/DOCUSATE SODIUM TAB PO SCH ×2 (08:58→20:38)
[2018-06-27] MEDS ORDERED: Herbals/Supplements -Info Only PO SCH (09:00)
[2018-06-27] MEDS: PROMETHAZINE HCL 25 MG TAB PO PRN ×2 (09:57→17:29)
[2018-06-27] MEDS ORDERED: FLUCONAZOLE 150 MG TAB PO ONE (11:04)
[2018-06-27] MEDS: oxyCODONE IR 5 MG TAB PO PRN ×2 (11:53→20:36)
--- NOTE | 2018-06-27 12:36 | HOSPPROG ---
Hospitalist Progress Note Assessment/Plan: #Neutropenic fever: Positive for parainfluenza 4. Monitor off abx, but would restart if fevers. Blood cultures negative #Mucositis: Magic mouthwash. #Nausea: P.r.n. Zofran and Phenergan. #Vaginal yeast infection: Diflucan #Chronic kidney stones: P.r.n. Flexeril. #Hypothyroidism: Levothyroxine. #Diet: regular #DVT ppx: Lovenox #Disp: inpatient for IV hydration. Case d/w Dr. Trujillo Subjective: mouth sores hurt, vaginal discharge Objective: Vital Signs Temp Pulse Resp BP Pulse Ox 37.7 C 91 16 119/82 H 96 06/27/18 11:20 06/27/18 11:20 06/27/18 11:20 06/27/18 11:20 06/27/18 11:20 Laboratory Results 06/27/18 04:18 06/26/18 06/27/18 06/28/18 05:59 05:59 05:59 Intake Total 1877 Output Total 1550 Balance 327 PT 13.5 SEC (12.0-15.0) 06/26/18 09:26 INR 1.01 (0.83-1.16) 06/26/18 09:26 - Time Spent With Patient Time Spent with Patient: greater than 35 minutes Time Spent with Patient: Greater than 35 minutes spent on this patients care, greater than 50% of time spent counseling, educating, and coordinating care regarding the above mentioned plan. - Physical Exam Constitutional: uncomfortable, other (fatigued) Ears, Nose, Mouth, Throat: other (oral mucositis. Congenital soft mass upper palate) Cardiovascular: regular rate and rhythym Respiratory: no respiratory distress, No expiratory wheeze, No inspiratory crackles Gastrointestinal: normoactive bowel sounds Genitourinary: no bladder fullness Skin: warm Musculoskeletal: full muscle strength Neurologic: AAOx3, CN II-XII Intact Psychiatric: interacting appropriately ICD10 Worksheet Patient Problems: Problems Problem Status Onset Fever Acute Leukopenia Acute Calculus of left kidney Acute Chest pain Acute Hydronephrosis with ureteral calculus Acute Nephrolithiasis Acute Renal colic on right side Acute UTI (lower urinary tract infection) Acute
--- NOTE | 2018-06-27 14:53 | SOAPPROG ---
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 She is being treated by Dr. Terrence Nam for her breast cancer. She initially presented back in February of 2018 when she self palpated a right sided breast mass. U/S bx showed a ILC low ER positive, pr negative, her-2 negative. She underwent a lumpectomy and SLNBX that showed a ER 1.5%, TN negative, HER2 negative, KI67 23%. Oncotype score was 30. She was dispositioned to [facility] for which she received 2 cycles the last of which was 06/19/18 with growth factor support. She presented to [facility] ER with fever up to 100.5F at home and a nonproductive cough. She has significant sinus drainage and post nasal drip. This is accompanied by headaches that she states are in the the posterior portion of her head bilaterally. She's had difficulties with nausea and mucositis. She's had decreased PO intake included decreased fluids. Nasal swab is positive for parainfluenza. This is most likely responsible for her fever and cough. However, she is at risk for other sources of infection from her mouth/mucositis from chemo. I think she also may have a superimposed oral alesia infection (in addition to her complaints of a vaginal yeast infection). Therefore, coverage with diflucan is a good idea. Plan: - Monitor counts. She already received neulasta as part of her chemo so additional GCSF will not be helpful - I'm OK with stopping IV ABX for the moment, but if she has a fever, I would have a low threshold to restart until she is no longer neutropenic - Diflucan may help her mouth/vaginal yeast infection. She is due for her 3rd of a planned 4 doses of AC on Friday with Dr. Terrence Nam in [place]. Subjective: c/o sore mouth, constipation, vaginal yeast infection Objective: Vital Signs Temp Pulse Resp BP Pulse Ox 37.7 C 91 16 119/82 H 96 06/27/18 11:20 06/27/18 11:20 06/27/18 11:20 06/27/18 11:20 06/27/18 11:20 Laboratory Results 06/27/18 04:18 06/25/18 06/26/18 06/27/18 23:59 23:59 23:59 Intake Total 447 1430 Output Total 950 600 Balance -503 830 PT 13.5 SEC (12.0-15.0) 06/26/18 09:26 INR 1.01 (0.83-1.16) 06/26/18 09:26 Physical Exam - Physical Exam General Appearance: alert, mild distress EENT: other (stomatitis from chemo as well as a few lesions that are more consistent with alesia) Respiratory: lungs clear Cardiac/Chest: regular rate, rhythm Skin: warm/dry Neuro/Psych: oriented x 3 ICD10 Worksheet Patient Problems: Problems Problem Status Onset Fever Acute Leukopenia Acute Calculus of left kidney Acute Chest pain Acute Hydronephrosis with ureteral calculus Acute Nephrolithiasis Acute Renal colic on right side Acute UTI (lower urinary tract infection) Acute
[2018-06-27] MEDS: ENOXAPARIN 40 MG/0.4 ML SYR SC SCH (20:37)
[2018-06-28] MEDS: oxyCODONE IR 5 MG TAB PO PRN ×5 (01:09→20:08)
[2018-06-28] MEDS: ACETAMINOPHEN 325 MG TAB PO PRN (01:27)
[2018-06-28] MEDS: LEVOTHYROXINE 50 MCG TAB PO SCH (05:36)
[2018-06-28] MEDS: LORazepam 1 MG TAB PO PRN ×2 (05:36→20:09)
[2018-06-28] MEDS: MBX SOLN 30 ML BOTTLE PO PRN (05:48)
[2018-06-28] MEDS: CHOLECALCIFEROL VIT D3 1,000 UNITS TAB PO SCH (09:33)
[2018-06-28] MEDS: SENNOSIDES/DOCUSATE SODIUM TAB PO SCH ×2 (09:33→20:10)
--- NOTE | 2018-06-28 13:39 | SOAPPROG ---
SOAP Progress Note Assessment/Plan: Assessment: This is a 63 yo female with history of [id number] right sided ILC triple negative s /p lumpectomy who was admitted for neutropenic fever. She is being treated by Dr. Terrence Nam for her breast cancer. She initially presented back in February of 2018 when she self palpated a right sided breast mass. U/S bx showed a ILC low ER positive, pr negative, her-2 negative. She underwent a lumpectomy and SLNBX that showed a ER 1.5%, SC negative, HER2 negative, KI67 23%. Oncotype score was 30. She was dispositioned to ddAC for which she received 2 cycles the last of which was 06/19/18 with growth factor support. She presented to [facility] ER with fever up to 100.5F at home and a nonproductive cough. She has significant sinus drainage and post nasal drip. This is accompanied by headaches that she states are in the the posterior portion of her head bilaterally. She's had difficulties with nausea and mucositis. She's had decreased PO intake included decreased fluids. Nasal swab is positive for parainfluenza. This is most likely responsible for her fever and cough. However, she is at risk for other sources of infection from her mouth/mucositis from chemo. She still has significant stomatitis. Her PO intake is compromised. Will ask asset protection professional to see. We need to monitor her CBC until ANC is adequate (>1000). She has a macular rash on her back. No involvement of front of her trunk. I don' t think this is a drug rash. I'll give her hydrocortisone cream for symptom control. I think she also may have a superimposed oral alesia infection (in addition to her complaints of a vaginal yeast infection). Therefore, coverage with diflucan is a good idea. Plan: - Monitor counts. She already received neulasta as part of her chemo so additional GCSF will not be helpful - I'm OK with stopping IV ABX for the moment, but if she has a fever, I would have a low threshold to restart until she is no longer neutropenic - Diflucan may help her mouth/vaginal yeast infection. - Hydrocortisone cream to back She is due for her 3rd of a planned 4 doses of AC on Friday with Dr. Terrence Nam in [place]. It is unclear if she will be able to do this of if she will need a delay. Subjective: Mouth still sore and interfering with PO intake. C/O rash on back. Objective: Vital Signs Temp Pulse Resp BP Pulse Ox 36.9 C 83 16 109/82 H 97 06/28/18 12:23 06/28/18 12:23 06/28/18 12:23 06/28/18 12:23 06/28/18 12:23 Laboratory Results 06/27/18 04:18 06/26/18 06/27/18 06/28/18 23:59 23:59 23:59 Intake Total 447 2730 1400 Output Total 950 1620 1970 Balance -503 1110 -570 PT 13.5 SEC (12.0-15.0) 06/26/18 09:26 INR 1.01 (0.83-1.16) 06/26/18 09:26 Physical Exam - Physical Exam General Appearance: mild distress EENT: other (Grade 2 stomatitis. White 'stuck on' patches are improving. Lips still swollen.) Respiratory: lungs clear Cardiac/Chest: regular rate, rhythm Abdomen: normal bowel sounds, non-tender, soft Skin: rash (macular rash on back. no vessicles. symmetric. not involving anterior torso) Neuro/Psych: alert, normal mood/affect, oriented x 3 ICD10 Worksheet Patient Problems: Problems Problem Status Onset Fever Acute Leukopenia Acute Calculus of left kidney Acute Chest pain Acute Hydronephrosis with ureteral calculus Acute Nephrolithiasis Acute Renal colic on right side Acute UTI (lower urinary tract infection) Acute
--- NOTE | 2018-06-28 13:45 | HOSPPROG ---
Hospitalist Progress Note Assessment/Plan: #Neutropenic fever: Positive for parainfluenza 4. Monitor off abx, but would restart if fevers. Blood cultures negative #Mucositis: Magic mouthwash. #Nausea: Phenergan. No Zofran with Qt prolongation-risk with Diflucan #Mild back rash: may be related to URI. Benadryl cream #Vaginal yeast infection: Diflucan (Day 08/10) #Chronic kidney stones: P.r.n. Flexeril. #Hypothyroidism: Levothyroxine. #Diet: regular #DVT ppx: Lovenox #Disp: inpatient for IV hydration since not tolerating PO with mucositis. Case d /w Dr. Trujillo Subjective: mucositis and nasuea improved Objective: Vital Signs Temp Pulse Resp BP Pulse Ox 36.9 C 83 16 109/82 H 97 06/28/18 12:23 06/28/18 12:23 06/28/18 12:23 06/28/18 12:23 06/28/18 12:23 Laboratory Results 06/27/18 04:18 06/27/18 06/28/18 06/29/18 05:59 05:59 05:59 Intake Total 1877 2700 Output Total 1550 2020 970 Balance 327 680 -970 PT 13.5 SEC (12.0-15.0) 06/26/18 09:26 INR 1.01 (0.83-1.16) 06/26/18 09:26 - Time Spent With Patient Time Spent with Patient: greater than 35 minutes Time Spent with Patient: Greater than 35 minutes spent on this patients care, greater than 50% of time spent counseling, educating, and coordinating care regarding the above mentioned plan. - Physical Exam Constitutional: other (fatigued) Eyes: PERRL Ears, Nose, Mouth, Throat: other (oral lesions mildly improved. Chronic soft palate mass) Cardiovascular: regular rate and rhythym Respiratory: no respiratory distress Gastrointestinal: normoactive bowel sounds Genitourinary: No elizondo in urethra Skin: rash (mild pink rash with excoriations over back) Neurologic: AAOx3, CN II-XII Intact Psychiatric: interacting appropriately ICD10 Worksheet Patient Problems: Problems Problem Status Onset Fever Acute Leukopenia Acute Calculus of left kidney Acute Chest pain Acute Hydronephrosis with ureteral calculus Acute Nephrolithiasis Acute Renal colic on right side Acute UTI (lower urinary tract infection) Acute
[2018-06-28] MEDS: PROMETHAZINE HCL 25 MG TAB PO PRN (14:44)
[2018-06-28] MEDS: HYDROCORTISONE 1% CREAM TP SCH ×2 (15:06→20:13)
[2018-06-28] MEDS: FLUCONAZOLE 100 MG TAB PO SCH (15:06)
[2018-06-28] MEDS: DIPHENHYDRAMINE CREAM TP PRN (15:07)
[2018-06-28] MEDS: CETIRIZINE 10 MG TAB PO SCH (17:25)
[2018-06-28] MEDS: ENOXAPARIN 40 MG/0.4 ML SYR SC SCH (20:08)
[2018-06-29] MEDS: LORazepam 1 MG TAB PO PRN ×2 (05:03→20:26)
[2018-06-29] MEDS: oxyCODONE IR 5 MG TAB PO PRN ×4 (05:03→20:26)
[2018-06-29] MEDS: LEVOTHYROXINE 50 MCG TAB PO SCH (05:04)
[2018-06-29 05:49] LABS: PLATELET COUNT 211 10^3/uL (150-400)
[2018-06-29] MEDS: CETIRIZINE 10 MG TAB PO SCH (09:29)
[2018-06-29] MEDS: CHOLECALCIFEROL VIT D3 1,000 UNITS TAB PO SCH (09:29)
[2018-06-29] MEDS: SENNOSIDES/DOCUSATE SODIUM TAB PO SCH ×2 (09:29→20:26)
[2018-06-29] MEDS: FLUCONAZOLE 100 MG TAB PO SCH (09:30)
[2018-06-29] MEDS: NS 1,000 ML IV SCH (09:58)
[2018-06-29] MEDS: DIPHENHYDRAMINE CREAM TP PRN ×3 (10:39→20:27)
[2018-06-29] MEDS: HYDROCORTISONE 1% CREAM TP SCH ×2 (10:40→20:35)
[2018-06-29] MEDS: PROMETHAZINE HCL 25 MG TAB PO PRN (12:30)
--- NOTE | 2018-06-29 12:49 | SOAPPROG ---
SOAP Progress Note Assessment/Plan: Assessment/Plan: 63 yo woman w [id number] breast cancer admitted w neutropenic fever after C2 ddAC from 06/19/2018 1. Neutropenic fever - parainfluenza presumed source otherwise workup unrevealing s/p Neulasta as outpt ANC >1500 today and afebrile off abx cont supportive care but hopefully home in next few days 2. stomatitis - due to neutropenia grade 2 today cont supportive care w mouth rinses does not appear to be hsv but consider swabbing if no improvement in next couple days 3. Rash - improved 4. yeast infection - on diflucan 06/29/18 12:50 Subjective: No acute events still having difficulty eating Objective: Vital Signs Temp Pulse Resp BP Pulse Ox 36.5 C 96 18 126/93 H 97 06/29/18 12:00 06/29/18 12:00 06/29/18 12:00 06/29/18 12:00 06/29/18 12:00 Laboratory Results 06/29/18 04:52 06/28/18 06/29/18 06/30/18 05:59 05:59 05:59 Intake Total 2700 1251 300 Output Total 2019 1720 500 Balance 680 -469 -200 PT 13.5 SEC (12.0-15.0) 06/26/18 09:26 INR 1.01 (0.83-1.16) 06/26/18 09:26 Gen - fatigued appearing HEENT - anicteric, grade 2 oral mucositis CV - RRR Chest - occasional crackle bilaterally Abd - soft, NT/ND, BS+ Ext - no sig edema ICD10 Worksheet Patient Problems: Problems Problem Status Onset Fever Acute Leukopenia Acute Calculus of left kidney Acute Chest pain Acute Hydronephrosis with ureteral calculus Acute Nephrolithiasis Acute Renal colic on right side Acute UTI (lower urinary tract infection) Acute
--- NOTE | 2018-06-29 13:13 | ASMTCMCOM ---
CM Note CM Note Notes: Patient plan of care reviewed in rounds. She continues to have challenges with oral pain that prevents adequate intake. No PT or OT ordered. Anticipate dc to home when medically cleared for discharge. CM available should needs arise. Plan: DC to home likely no needs. Date Signed: 06/29/2018 01:13 PM Electronically Signed By:Lashon Ojeda RN
--- NOTE | 2018-06-29 16:46 | HOSPPROG ---
Hospitalist Progress Note Assessment/Plan: 63 yo F w chemo induced neutropenia Neutropenic fever: Positive for parainfluenza 4. Monitor off abx, but would restart if fevers. Blood cultures negative Mucositis: Magic mouthwash. Nausea: Phenergan. No Zofran with Qt prolongation-risk with Diflucan Mild back rash: may be related to URI. Benadryl cream Vaginal yeast infection: Diflucan (Day 2) Chronic kidney stones: P.r.n. Flexeril. Hypothyroidism: Levothyroxine. Diet: regular DVT ppx: Lovenox Subjective: case d/w dr pearce. eating minimally Objective: Vital Signs Temp Pulse Resp BP Pulse Ox 36.8 C 91 16 104/67 100 06/29/18 15:43 06/29/18 15:43 06/29/18 15:43 06/29/18 15:43 06/29/18 15:43 Laboratory Results 06/29/18 04:52 06/28/18 06/29/18 06/30/18 05:59 05:59 05:59 Intake Total 2700 1251 300 Output Total 2019 1720 800 Balance 680 -469 -500 PT 13.5 SEC (12.0-15.0) 06/26/18 09:26 INR 1.01 (0.83-1.16) 06/26/18 09:26 - Physical Exam Constitutional: no apparent distress, appears nourished Eyes: PERRL, anicteric sclera Ears, Nose, Mouth, Throat: moist mucous membranes, hearing normal, other ( multiple flat based oral ulcers) Cardiovascular: regular rate and rhythym, no murmur, rub, or gallop Respiratory: no respiratory distress, no rales or rhonchi Gastrointestinal: normoactive bowel sounds, soft, non-tender abdomen Genitourinary: no bladder fullness, No elizondo in urethra Skin: warm, normal color Musculoskeletal: full muscle strength Neurologic: AAOx3 ICD10 Worksheet Patient Problems: Problems Problem Status Onset Fever Acute Leukopenia Acute Calculus of left kidney Acute Chest pain Acute Hydronephrosis with ureteral calculus Acute Nephrolithiasis Acute Renal colic on right side Acute UTI (lower urinary tract infection) Acute
[2018-06-29] MEDS: diphenhydrAMINE 25 MG CAP PO PRN (18:48)
[2018-06-29] MEDS: MBX SOLN 30 ML BOTTLE PO PRN (18:50)
[2018-06-29] MEDS: ENOXAPARIN 40 MG/0.4 ML SYR SC SCH (20:25)
[2018-06-30] MEDS: LEVOTHYROXINE 50 MCG TAB PO SCH (05:05)
[2018-06-30] MEDS: oxyCODONE IR 5 MG TAB PO PRN ×2 (05:07→09:47)
[2018-06-30 05:14] LABS: PLATELET COUNT 203 10^3/uL (150-400)
[2018-06-30] MEDS: PROMETHAZINE HCL 25 MG TAB PO PRN (09:47)
[2018-06-30] MEDS: SENNOSIDES/DOCUSATE SODIUM TAB PO SCH ×2 (09:47→20:44)
[2018-06-30] MEDS: HYDROCORTISONE 1% CREAM TP SCH ×2 (09:48→20:44)
[2018-06-30] MEDS: CETIRIZINE 10 MG TAB PO SCH (09:48)
[2018-06-30] MEDS: CHOLECALCIFEROL VIT D3 1,000 UNITS TAB PO SCH (09:48)
[2018-06-30] MEDS: FLUCONAZOLE 100 MG TAB PO SCH (09:48)
[2018-06-30] MEDS: diphenhydrAMINE 25 MG CAP PO PRN (12:24)
[2018-06-30] MEDS: GLUTAMINE (GLUTASOLVE) 1 EACH PKT PO SCH ×2 (12:24→20:44)
--- NOTE | 2018-06-30 12:30 | SOAPPROG ---
SOAP Progress Note Assessment/Plan: Assessment/Plan: 63 yo woman w [id number] breast cancer admitted w neutropenic fever after C2 ddAC from 06/19/2018 1. Neutropenic fever - resolved parainfluenza presumed source of fever otherwise workup unrevealing s/p Neulasta as outpt off abx cont supportive care but hopefully home in next day or so 2. stomatitis - due to neutropenia improving cont supportive care w mouth rinses does not appear to be hsv 3. Rash - worse today w severe pruritis would give pred taper 4. yeast infection - on diflucan anticipate dc tomorrow if able to ambulate and keep up w fluids 06/30/18 12:27 Subjective: Severe pruritis Objective: Vital Signs Temp Pulse Resp BP Pulse Ox 37.1 C 99 16 113/79 95 06/30/18 08:00 06/30/18 08:00 06/30/18 08:00 06/30/18 08:00 06/30/18 08:00 Laboratory Results 06/30/18 04:48 06/29/18 06/30/18 07/01/18 05:59 05:59 05:59 Intake Total 1251 1501 Output Total 1720 800 800 Balance -469 701 -800 PT 13.5 SEC (12.0-15.0) 06/26/18 09:26 INR 1.01 (0.83-1.16) 06/26/18 09:26 Gen - more energetic today HEENT - still w oral stomatitis CV - RRR Res- CTA Abd - soft, NT, BS+ Skin - diffuse maculopapular rash ICD10 Worksheet Patient Problems: Problems Problem Status Onset Fever Acute Leukopenia Acute Calculus of left kidney Acute Chest pain Acute Hydronephrosis with ureteral calculus Acute Nephrolithiasis Acute Renal colic on right side Acute UTI (lower urinary tract infection) Acute
--- NOTE | 2018-06-30 14:25 | ASMTCMCOM ---
CM Note CM Note Notes: Patient plan of care reviewed in rounds. 63 year old female s/p treatment for breast cancer admitted with neutropenic fever and ulcerative sore in her mouth. Slowly progressing with pain control and oral intake. Likely to discharge to home no needs tomorrow. CM available should needs arise. Plan: Home with family when medically cleared for discharge. Date Signed: 06/30/2018 02:24 PM Electronically Signed By:Lashon Ojeda RN
[2018-06-30] MEDS: predniSONE 20 MG TAB PO SCH (15:46)
[2018-06-30] MEDS: MBX SOLN 30 ML BOTTLE PO PRN ×2 (16:33→20:49)
[2018-06-30] MEDS: LORazepam 1 MG TAB PO PRN (16:40)
--- NOTE | 2018-06-30 17:11 | HOSPPROG ---
Hospitalist Progress Note Assessment/Plan: * Breast cancer - on chemo * Neutropenic fever - due to viral infection -neutropenia/fever resolved - off abx -s/p Neulasta * Parainfluenza infection * Severe mucositis -still unable to take PO -MBX, add glutamine * Rash - due to chemo -d/w Dr. Gonzalez - prednisone 20mg PO daily for 5 days * Vaginal yeast infection -diflucan * Medullary sponge kidney Subjective: Severe oral pain due to mucositis, not taking hardly any PO. Extreme itchy due to rash Objective: Vital Signs Temp Pulse Resp BP Pulse Ox 37.1 C 93 18 122/88 H 95 06/30/18 16:00 06/30/18 16:00 06/30/18 16:00 06/30/18 16:00 06/30/18 16:00 Laboratory Results 06/30/18 04:48 06/29/18 06/30/18 07/01/18 05:59 05:59 05:59 Intake Total 1251 1501 Output Total 0002 497 7152 Balance -469 701 -1550 PT 13.5 SEC (12.0-15.0) 06/26/18 09:26 INR 1.01 (0.83-1.16) 06/26/18 09:26 CXR - negative - Physical Exam Constitutional: no apparent distress, appears nourished, not in pain Cardiovascular: regular rate and rhythym, no murmur, rub, or gallop Respiratory: no respiratory distress, no rales or rhonchi, clear to auscultation Gastrointestinal: normoactive bowel sounds, soft, non-tender abdomen, no palpable masses Skin: no rashes or abrasions, no fluctuance, no induration Neurologic: AAOx3, sensation intact bilaterally Psychiatric: interacting appropriately, not anxious, not encephalopathic, thought process linear ICD10 Worksheet Patient Problems: Problems Problem Status Onset Chest pain Acute UTI (lower urinary tract infection) Acute Calculus of left kidney Acute Hydronephrosis with ureteral calculus Acute Nephrolithiasis Acute Renal colic on right side Acute Fever Acute Leukopenia Acute
[2018-06-30] MEDS: ENOXAPARIN 40 MG/0.4 ML SYR SC SCH (20:43)
[2018-07-01] MEDS: oxyCODONE IR 5 MG TAB PO PRN (04:24)
[2018-07-01] MEDS: LORazepam 1 MG TAB PO PRN (04:24)
[2018-07-01] MEDS: LEVOTHYROXINE 50 MCG TAB PO SCH (04:57)
[2018-07-01 05:28] LABS: PLATELET COUNT 249 10^3/uL (150-400)
[2018-07-01] MEDS: FLUCONAZOLE 100 MG TAB PO SCH (09:36)
[2018-07-01] MEDS: CHOLECALCIFEROL VIT D3 1,000 UNITS TAB PO SCH (09:36)
[2018-07-01] MEDS: CETIRIZINE 10 MG TAB PO SCH (09:36)
[2018-07-01] MEDS: predniSONE 20 MG TAB PO SCH (09:36)
[2018-07-01] MEDS: SENNOSIDES/DOCUSATE SODIUM TAB PO SCH (09:36)
[2018-07-01] MEDS: GLUTAMINE (GLUTASOLVE) 1 EACH PKT PO SCH (09:37)
[2018-07-01] MEDS: HYDROCORTISONE 1% CREAM TP SCH (12:09)
[2018-07-01 13:39] VITALS: BP 95/79
--- NOTE | 2018-07-01 18:30 | GDS ---
DISCHARGE DIAGNOSES: 1. Breast cancer on chemotherapy. 2. Neutropenic fever due to viral infection. 3. Parainfluenza, upper respiratory infection. 4. Severe mucositis. 5. Rash due to chemotherapy. 6. Vaginal yeast infection. 7. Medullary sponge kidney with recurrent kidney stones. HISTORY: The patient is a 63-year-old female with breast cancer on chemotherapy. She presented with neutropenic fever. Her respiratory PCR is positive for parainfluenza. Her blood cultures were nega tive. Her neutropenia resolved. She had received Neulasta as an outpatient. The etiology of fever was felt to be this viral infection. Her antibiotics have been discontinued and she continues to do well. She continues to have severe mucositis. She will be prescribed MBX and glutamine at discharge and sh e is able to tolerate oral hydration and some soft foods. She has a rash due to chemotherapy. Dr. Bong galvan recommended prednisone 20 mg p.o. daily for 5 days. She has had improvement on this regimen. During this hospitalization she was diagnosed with a vaginal yeast infection and initiated on a cours e of diflucan. DISCHARGE MEDICATIONS: Please see computer record for full detailed list. New medications: 1. Benadryl 25 mg p.o. q.6 hours as needed for itching. 2. Glutamine 1 pack p.o. twice daily. 3. MBX as needed. 4. Oxycodone 5-10 mg p.o. q.4 hours as needed. 5. Prednisone 20 mg p.o. daily for 4 more days. 6. Diflucan 100 mg p.o. daily for 4 more days. DISCHARGE INSTRUCTIONS: Follow up with oncologist, Dr. Nam, at [facility] as scheduled. S he can follow up with her primary care doctor, Dr. Navas for all other needs. Greater than 30 minutes' time was spent arranging this discharge. Patient seen and examined by me on day of discharge. /[id number]/MODL
== END 2018-07-01 15:42 | disposition home or self-care (01) | DRG 809 ==
LOC: F1N 14:55
PROVIDERS: ADMIT Internal Medicine; ATTEND Internal Medicine
DX: D70.3 Neutropenia due to infection (principal); J06.9 Acute upper respiratory infection, unspecified; C50.911 Malignant neoplasm of unspecified site of right female breast; Q61.5 Medullary cystic kidney; K12.31 Oral mucositis (ulcerative) due to antineoplastic therapy; E03.9 Hypothyroidism, unspecified; L27.0 Generalized skin eruption due to drugs and medicaments taken internally; T45.1X5A Adverse effect of antineoplastic and immunosuppressive drugs, initial encounter; B37.3 Candidiasis of vulva and vagina; N20.0 Calculus of kidney; G89.4 Chronic pain syndrome
CPT/HCPCS: 96374; J0456; J0692; J1650; J2060; J2550; J7512

== ENCOUNTER 2018-07-30 11:34 | Inpatient (IN) | payer OTHER ==
[2018-07-30] MEDS ORDERED: NS 1,000 ML IV ONE (12:19)
[2018-07-30] MEDS ORDERED: ACETAMINOPHEN 325 MG TAB PO ONE (12:19)
[2018-07-30] MEDS ORDERED: NS 1,600 ML IV ONE (12:40)
[2018-07-30 12:48] LABS: PLATELET COUNT 156 10^3/uL (150-400)
--- NOTE | 2018-07-30 12:59 | EDPHY ---
H & P Stated Complaint: fever, R flank pain and bladder spasms, sent by oncologist Time Seen by Provider: 07/30/18 12:17 HPI/ROS: CHIEF COMPLAINT: Fever, right flank pain HISTORY OF PRESENT ILLNESS: 63-year-old female with T breast cancer and medullary sponge kidney presents with fever and he right flank pain. Last chemotherapy was 1 week ago. Onset of low-grade fever 2 days ago. Associated with moderate right flank pain. The pain waxes and wanes and is similar to prior kidney stones. She also has a dry cough, without recent change. No dysuria or urinary frequency. REVIEW OF SYSTEMS: complete 10 point ROS reviewed and is negative except for the noted elements in the HPI - Personal History Current Tetanus Diphtheria and Acellular Pertussis (TDAP): Yes - Medical/Surgical History Hx Asthma: No Hx Chronic Respiratory Disease: No Hx Diabetes: No Hx Cardiac Disease: No Hx Renal Disease: Yes Hx Cirrhosis: No Hx Alcoholism: No Hx HIV/AIDS: No Hx Splenectomy or Spleen Trauma: No Other PMH: Breast cancer, on chemotherapy 07/21; kidney stones, hysterectomy, medullary sponge kidney disease, hypothyroid, chronic pain on opiates, bilateral knee meniscal repairs - Social History Smoking Status: Never smoked Alcohol Use: Sober Drug Use: None Additional Social History: - Physical Exam Exam: General Appearance: Alert, pleasant, nontoxic-appearing Eyes: Pupils equal and round, no conjunctival pallor or injection ENT, Mouth: Mucous membranes moist Neck: Normal inspection Respiratory: left anterior chest wall-port in place, no overlying erythema or tenderness; Lungs are clear to auscultation Cardiovascular: Regular rate and rhythm Gastrointestinal: Abdomen is soft, right upper quadrant tenderness Back: No CVA tenderness Neurological: A&O, nonfocal, normal gait Skin: Warm and dry, no rash Extremities: Normal inspection Psychiatric: Mood and affect normal Constitutional: Initial Vital Signs Temperature (C) 38.0 C 07/30/18 11:39 Heart Rate 138 H 07/30/18 11:39 Respiratory Rate 20 07/30/18 11:39 Blood Pressure 103/83 H 07/30/18 11:39 O2 Sat (%) 97 07/30/18 11:39 O2 Delivery Mode Room Air Allergies/Adverse Reactions: levofloxacin [From Levaquin] Allergy (Verified 07/30/18 11:36) Vomiting Sulfa (Sulfonamide Antibiotics) Allergy (Verified 07/30/18 11:36) Vomiting Home Medications: Medication Instructions Recorded Levothyroxine [Synthroid 50 mcg 50 mcg PO HS 09/03/14 (*)] Cholecalciferol Vit D3 [Vitamin D3 1,000 units PO DAILY 06/26/18 (*)] Cyclobenzaprine [Flexeril 10 MG 10 mg PO TID PRN 06/26/18 (*)] Diazepam [Valium 10 MG (*)] 10 mg PO TID PRN 06/26/18 Herbals/Supplements -Info Only 1 ea PO DAILY 06/26/18 LORazepam [Ativan (*)] 0.5 - 1 mg PO Q8HRS PRN 06/26/18 Promethazine HCl [Phenergan 25mg 25 mg PO BID PRN 06/26/18 (*)] Prochlorperazine Maleate 10 mg PO Q8HRS PRN 07/30/18 [Compazine 10mg (*)] oxyCODONE IR [Oxycodone Ir (*)] 5 - 10 mg PO DAILY PRN 07/30/18 Medical Decision Making - Diagnostics Imaging Results: Imaging Impressions Chest X-Ray 07/30/18 12:46 Impression: 1. Stable fibrotic change at the left base. 2. No active cardiopulmonary disease seen. Abdomen Ultrasound 07/30/18 12:54 Impression: 1. No cholelithiasis or biliary ductal dilation. 2. Hepatic steatosis without definite focal hepatic masses or ascites. 3. Atrophic spleen. 4. Bilateral nonobstructive nephrolithiasis. No hydronephrosis. 5. No aortic aneurysm. Findings and recommendations discussed with Emergency Department physician, Dr. Manuela Gomes at 1408 hours on July 30, 2018. Final report concurs with initial preliminary interpretation. Imaging: Discussed imaging studies w/ bilingual call center representative Radiologist ED Course/Re-evaluation: This patient presents with fever and right flank pain, concerning for pyelonephritis. IV fluids, labs and Tylenol ordered. This presently, urinalysis is normal, without evidence of UTI. Initial lactate is elevated 2.4, IV fluids per the severe sepsis protocol initiated and repeat lactate ordered. Results discussed with the patient. Will proceed with renal ultrasound to evaluate for hydronephrosis and gallbladder ultrasound to rule out cholecystitis. CBC reveals neutropenia, chest x-ray is unremarkable. Results d/w pt. Cefepime 2g IV given for neutropenic fever. Repeat lactate 1.3. The hospitalist service was consulted for admission. Renal and gallbladder sono unremarkable. No evidence for hydronephrosis/ obstructing renal calculus or cholecystitis. Blood pressure remained adequate throughout ED stay and pt felt better with fever reduction. This pt utilized 35 minutes of critical care time exclusive of unbundled procedures. Time spent in assessments, order takers supervisor/review, medication ordering , discussions with pt and consultants. Differential Diagnosis: Differential diagnosis includes pyelonephritis, cholecystitis, influenza, cellulitis, pneumonia, abscess, meningitis. - Data Points Laboratory Results: Laboratory Results 07/30/18 12:25 07/30/18 12:25 07/30/18 07/30/18 07/30/18 12: 12: 12:25 WBC 0.27 10^3/uL L* 10^3/uL (3.80-9.50) RBC 3.28 10^6/uL L 10^6/uL (4.18-5.33) Hgb 10.2 g/dL L g/dL (12.6-16.3) Hct 29.9 % L % (38.0-47.0) MCV 91.2 fL fL (81.5-99.8) MCH 31.1 pg pg (27.9-34.1) MCHC 34.1 g/dL g/dL (32.4-36.7) RDW 16.7 % H % (11.5-15.2) Plt Count 156 10^3/uL 10^3/uL (150-400) MPV 10.5 fL fL (8.7-11.7) Neut % (Auto) Not Reported Lymph % (Auto) Not Reported Dewitt % (Auto) Not Reported Eos % (Auto) Not Reported Baso % (Auto) Not Reported Nucleat RBC Rel Count Not Reported Absolute Neuts (auto) Not Reported Absolute Lymphs (auto) Not Reported Absolute Monos (auto) Not Reported Absolute Eos (auto) Not Reported Absolute Basos (auto) Not Reported Absolute Nucleated RBC Not Reported Immature Gran % Not Reported Seg Neutrophils % 4.3 % % Band Neutrophils % 0.0 % % Lymphocytes % 69.3 % % Monocytes % 7.1 % % Eosinophils % 2.9 % % Basophils % 16.4 % % Metamyelocytes % 0.0 % % Myelocytes % 0.0 % % Promyelocytes % 0.0 % % Blast Cells % 0.0 % % Immature Gran # Not Reported Absolute Seg Neuts 0.01 10^3/uL L 10^3/uL (1.70-6.50) Absolute Band Neuts 0.00 10^3/uL 10^3/uL (0.00-0.70) Absolute Lymphocytes 0.19 10^3/uL L 10^3/uL (1.00-3.00) Absolute Monocytes 0.02 10^3/uL L 10^3/uL (0.30-0.80) Absolute Eosinophils 0.01 10^3/uL L 10^3/uL (0.03-0.40) Absolute Basophils 0.04 10^3/uL 10^3/uL (0.02-0.10) Absolute Metamyelocyte 0.00 10^3/mL 10^3/mL (0.00-0.00) Absolute Myelocytes 0.00 10^3/mL 10^3/mL (0.00-0.00) Absolute Promyelocytes 0.00 10^3/uL 10^3/uL (0.00-0.00) Absolute Plasma Cells 0.00 10^3/uL 10^3/uL (0.00-0.00) Nucleated RBCs 0 /100 WBC /100 WBC (0-0) RBC/WBC/PLT Morphology NORMAL (NORMAL) Absolute Blast Cells 0.00 10^3/uL 10^3/uL (0.00-0.00) Plasma Cells % 0.0 % % Platelet Estimate ADEQUATE (ADEQ) Smear Review By Kika JEAN MD VB Lactic Acid 2.4 mmol/L H mmol/L (0.7-2.1) Sodium 138 mEq/L mEq/L (135-145) Potassium 3.9 mEq/L mEq/L (3.5-5.2) Chloride 105 mEq/L mEq/L (97-110) Carbon Dioxide 22 mEq/l mEq/l (22-31) Anion Gap 11 mEq/L mEq/L (6-14) BUN 8 mg/dL mg/dL (7-23) Creatinine 0.5 mg/dL L mg/dL (0.6-1.0) Estimated GFR > 60 Glucose 114 mg/dL H mg/dL (70-100) Calcium 10.1 mg/dL mg/dL (8.5-10.4) Urine Color Urine Appearance Urine pH Ur Specific Closplint Urine Protein Urine Ketones Urine Blood Urine Nitrate Urine Bilirubin Urine Urobilinogen Ur Leukocyte Esterase Urine Glucose 07/30/18 11:45 WBC RBC Hgb Hct MCV MCH MCHC RDW Plt Count MPV Neut % (Auto) Lymph % (Auto) Dewitt % (Auto) Eos % (Auto) Baso % (Auto) Nucleat RBC Rel Count Absolute Neuts (auto) Absolute Lymphs (auto) Absolute Monos (auto) Absolute Eos (auto) Absolute Basos (auto) Absolute Nucleated RBC Immature Gran % Seg Neutrophils % Band Neutrophils % Lymphocytes % Monocytes % Eosinophils % Basophils % Metamyelocytes % Myelocytes % Promyelocytes % Blast Cells % Immature Gran # Absolute Seg Neuts Absolute Band Neuts Absolute Lymphocytes Absolute Monocytes Absolute Eosinophils Absolute Basophils Absolute Metamyelocyte Absolute Myelocytes Absolute Promyelocytes Absolute Plasma Cells Nucleated RBCs RBC/WBC/PLT Morphology Absolute Blast Cells Plasma Cells % Platelet Estimate Smear Review By VBG Lactic Acid Sodium Potassium Chloride Carbon Dioxide Anion Gap BUN Creatinine Estimated GFR Glucose Calcium Urine Color YELLOW Urine Appearance MODERATELY TURBID Urine pH 5.0 (5.0-7.5) Ur Specific Clos[place]int 1.018 (1.002-1.030) Urine Protein NEGATIVE (NEGATIVE) Urine Ketones NEGATIVE (NEGATIVE) Urine Blood NEGATIVE (NEGATIVE) Urine Nitrate NEGATIVE (NEGATIVE) Urine Bilirubin NEGATIVE (NEGATIVE) Urine Urobilinogen NEGATIVE EU EU (0.2-1.0) Ur Leukocyte Esterase NEGATIVE (NEGATIVE) Urine Glucose NEGATIVE (NEGATIVE) Medications Given: Acetaminophen (Tylenol) 650 mg PO Q4HRS PRN PRN Reason: Pain, Mild/Fever, Can Take PO Stop: 01/26/19 14:02 Last Admin: 07/30/18 21:16 Dose: 650 mg Cyclobenzaprine HCl (Flexeril) 10 mg PO TID PRN PRN Reason: Spasms Stop: 01/26/19 14:00 Last Admin: 07/30/18 15:35 Dose: 10 mg Cefepime HCl 2 gm/ Sodium (Chloride) 100 mls @ 200 mls/hr IV Q8H CARMENZA PRN Reason: Protocol Stop: 08/29/18 21:59 Last Admin: 07/30/18 21:15 Dose: 100 mls Potassium Chloride/Sodium Chloride (Ns W/ 20 Kcl/L) 1,000 mls @ 100 mls/hr IV CONT CARMENZA Stop: 01/26/19 18:44 Last Admin: 07/30/18 21:13 Dose: 1,000 mls Levothyroxine Sodium (Synthroid) 50 mcg PO HS CARMENZA Stop: 01/26/19 20:59 Last Admin: 07/30/18 21:15 Dose: 50 mcg Lorazepam (Ativan) 0.5 - 1 mg PO Q8HRS PRN PRN Reason: Nausea/Vomiting, Use 1st Stop: 01/26/19 14:00 Last Admin: 07/30/18 15:35 Dose: 1 mg Morphine Sulfate (Morphine) 2 - 4 mg IVP Q3H PRN PRN Reason: Pain, Severe Unable to Take PO Stop: 08/09/18 16:23 Last Admin: 07/30/18 21:16 Dose: 4 mg Prochlorperazine Maleate (Compazine) 10 mg PO Q8HRS PRN PRN Reason: Nausea/Vomiting, Use 2nd Stop: 01/26/19 14:00 Last Admin: 07/30/18 17:23 Dose: 10 mg Promethazine HCl (Phenergan) 25 mg PO BID PRN PRN Reason: Nausea/Vomiting, Use 3rd Stop: 01/26/19 14:00 Last Admin: 07/30/18 21:16 Dose: 25 mg Tamsulosin HCl (Flomax) 0.4 mg PO DAILY CARMENZA Stop: 01/26/19 16:29 Last Admin: 07/30/18 17:23 Dose: 0.4 mg Discontinued Medications Acetaminophen (Tylenol) 650 mg PO EDNOW ONE Stop: 07/30/18 12:20 Last Admin: 07/30/18 12:26 Dose: 650 mg Fluconazole (Diflucan) 200 mg PO DAILY CARMENZA Stop: 07/30/18 16:31 Last Admin: 07/30/18 17:23 Dose: 200 mg Sodium Chloride (Ns) 1,000 mls @ 0 mls/hr IV ONCE ONE; Wide Open PRN Reason: Protocol Stop: 07/30/18 12:20 Last Admin: 07/30/18 12:26 Dose: 1,000 mls Sodium Chloride (Ns) 1,600 mls @ 3,200 mls/hr 30 ml/kg infuse over 30 min ( 1600 ml) IV EDNOW ONE PRN Reason: Protocol Stop: 07/30/18 13:09 Last Admin: 07/30/18 13:02 Dose: 1,600 mls Cefepime HCl 2 gm/ Sodium (Chloride) 100 mls @ 200 mls/hr IV EDNOW ONE PRN Reason: Protocol Stop: 07/30/18 13:29 Last Admin: 07/30/18 14:00 Dose: 100 mls Departure - Departure Disposition: [facility]
[2018-07-30] MEDS ORDERED: CEFEPIME HCL 2 GM in NS 100 ML IV ONE (13:00)
[2018-07-30] MEDS ORDERED: oxyCODONE IR 5 MG TAB PO PRN (14:01)
[2018-07-30] MEDS ORDERED: CYCLOBENZAPRINE 10 MG TAB PO PRN (14:01)
[2018-07-30] MEDS ORDERED: ACETAMINOPHEN 325 MG TAB PO PRN (14:03)
--- NOTE | 2018-07-30 14:06 | PDGENHP ---
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 She was found to be severely neutropenic with an ANC of 10. Pt has been on adriamycin every other x 2 months. Her final dose was last week. Her last Neulasta dose was last Fri (8 days ago). Pt is supposed to start taxol w/ Dr. Nam next week. When current symptoms began, she thought she was getting a kidney stone, which is common for her because she has medullary sponge kidneys. However, UA in the ED was normal. Patient denies any specific signs/symptoms pointing to a specific infection. She has had chronic nasal/sinus congestion, which has been attributed to the chemotherapy. Other than severe nausea, she reports having severe mucositis with mouth pain. She has also had some vaginal itching/ discomfort. Past medical history: Right-sided breast cancer, congenital medullary sponge kidney disease, chronic kidney stones, hypothyroidism, esophageal spasms, chronic pain, hiatal hernia, hypothyroidism, esophageal spasms, chronic pain, hiatal hernia. Past surgical history: Left-sided ureteral stent, right lumpectomy. Port placement. Medications: Please see med rec form. Allergies: Level Floxin, sulfa. Social history: Rarely drinks alcohol. Regularly uses CBD. Never smoked. Family history: Mother-renal cell carcinoma. Maternal grandmother-stomach cancer. Review of systems: 10 point review of systems was conducted and is negative except per HPI Physical exam: Vitals: Reviewed General: The patient is a female who is alert and in no acute distress. HEENT: normocephalic, extraocular movements intact, conjunctivae clear, no lesions on face. Mucous membranes moist. Neck: trachea midline, no visible masses, no external lesions. CV: +S1/S2, RRR, no MRG. Resp: unlabored, CTAB no RRW. Abd: soft and nondistended. Musculoskeletal: Normal muscle tone and bulk. Neuro: cranial nerves II - XII grossly intact. Intact gross motor and sensory function. Psych: appropriate mood/affect. Skin: Mild pallor. Heme/lymph: No peripheral edema. : +right sided CVA tenderness. No suprapubic tenderness. Labs: ANC 10. UA-normal. Hemoglobin 10.2. Other Data: Chest x-ray no acute cardiopulmonary abnormality. Personally interpreted. Abdomen ultrasound-no acute abnormality. Bilateral nonobstructive nephrolithiasis without hydronephrosis. Hepatic steatosis. Atrophic spleen. Impression and plan: Neutropenic fever Chemotherapy adverse effects Right-sided flank pain Mucositis Vaginitis Nausea Chronic kidney stones Medullary kidney sponge disease Chronic pain, on opiates and CBD Hypothyroidism -continue home meds. -prn analgesics, antiemetics. -magic mouthwash or saline/bicarb rinses. -fluconazole. -if flank symptoms persist, we will get CT scan of abdomen/pelvis without contrast in a.m.. -check respiratory panel -recheck UA since symptoms are highly suggestive of nephrolithiasis. -continue IV fluids and empiric broad-spectrum antibiotic. -Consult Onc in AM. -VTE ppx - Lovenox. -Code status - full. Dispo: inpt, > 2 midnight stay for IV antibiotics, blood culture results, additional testing, uncontrolled nausea/pain.
[2018-07-30] MEDS: LORazepam 1 MG TAB PO PRN (15:35)
[2018-07-30] MEDS ORDERED: MBX SOLN 30 ML BOTTLE PO PRN (16:16)
[2018-07-30] MEDS ORDERED: FLUCONAZOLE 100 MG TAB PO SCH (16:30)
[2018-07-30] MEDS: TAMSULOSIN HCL 0.4 MG CAP PO SCH (17:23)
[2018-07-30] MEDS: PROCHLORPERAZINE MALEATE 10 MG TAB PO PRN (17:23)
[2018-07-30] MEDS ORDERED: ONDANSETRON 4 MG/2 ML VIAL IVP PRN (18:43)
[2018-07-30] MEDS: NS W/ 20 KCl/L 1,000 ML IV SCH (21:13)
[2018-07-30] MEDS: CEFEPIME HCL 2 GM in NS 100 ML IV SCH (21:15)
[2018-07-30] MEDS: LEVOTHYROXINE 50 MCG TAB PO SCH (21:15)
[2018-07-30] MEDS: PROMETHAZINE HCL 25 MG TAB PO PRN (21:16)
--- NOTE | 2018-07-30 21:26 | PDMN ---
Medical Necessity Medical necessity: Pt meets IP criteria as of 07/30/2018 per and MCG M-160 ( other febrile illness); est los > 2 mn for ongoing tx and management of neutropenic fever with mucositis, vaginitis, and nausea in the setting of chemotherapy for breast CA.
[2018-07-31] MEDS: CEFEPIME HCL 2 GM in NS 100 ML IV SCH ×3 (05:13→21:03)
[2018-07-31] MEDS: PROCHLORPERAZINE MALEATE 10 MG TAB PO PRN (05:13)
[2018-07-31 05:36] LABS: PLATELET COUNT 124 10^3/uL (150-400)
[2018-07-31] MEDS: LORazepam 2 MG/ML INJ IVP PRN ×2 (08:37→16:07)
[2018-07-31] MEDS: NS W/ 20 KCl/L 1,000 ML IV SCH (08:42)
[2018-07-31] MEDS: ENOXAPARIN 40 MG/0.4 ML SYR SC SCH (10:05)
[2018-07-31] MEDS: TAMSULOSIN HCL 0.4 MG CAP PO SCH (10:06)
[2018-07-31] MEDS: FLUCONAZOLE 100 MG TAB PO SCH (10:06)
[2018-07-31] MEDS: MULTIVITAMINS 1 EACH TAB PO SCH (10:06)
[2018-07-31] MEDS: PRILOCAINE TP PRN ×2 (10:10→12:34)
[2018-07-31] MEDS: LIDOCAINE TP PRN ×2 (10:10→12:34)
[2018-07-31] MEDS: PROMETHAZINE HCL 25 MG TAB PO PRN (12:33)
--- NOTE | 2018-07-31 12:55 | HOSPPROG ---
Hospitalist Progress Note Assessment/Plan: The patient is a 63-year-old female with PMH breast cancer who was admitted for acute right flank pain, generalized weakness, fatigue, and chemotherapy induced neutropenia with fever. ASSESSMENT/PLAN: Neutropenic fever - ANC 60 Chemotherapy adverse effects Right-sided flank pain, likely 2/2 nephrolithiasis Mucositis Vaginitis Nausea Chronic kidney stones Medullary kidney sponge disease Chronic pain, on opiates and CBD Hypothyroidism -Check CT abd/pelv w/o contrast for high suspicion nephrolithiasis causing symptoms, to r/o obstruction. -Discussed w/ pt and her that inflammation 2/2 renal stone could potentially cause fever. Pt also higher risk of UTI a/w ureteral stone, carissa w/ H /o recurrent UTIs. -Continue Flomax and IV fluids and cefepime. -continue home meds. -prn analgesics, antiemetics. Change Compazine to q6h as it is helping. -magic mouthwash or saline/bicarb rinses. -fluconazole. -Restart antihistamine to help w/ bone pain from Neulasta (per Onc) -- Claritin is NF so giving Zyrtec. -Consulted Oncology- discussed case w/ Dr. Shaw. -Check AM labs. -VTE ppx - Lovenox. -Code status - full. Dispo: inpt, > 2 midnight stay for IV antibiotics, blood culture results, additional testing, uncontrolled nausea/pain. ____ SUBJECTIVE: Today pt continues to have nause and R flank colicky pain that starts R back, radiates to R flank and down to R suprapubic area. OBJECTIVE: Physical Exam: General: The patient is a female who is alert and in no acute distress. HEENT: normocephalic, extraocular movements intact, conjunctivae clear. Mucous membranes moist. Neck: trachea midline, no visible masses. Resp: unlabored. Abd: soft and nondistended Musculoskeletal: Normal muscle tone/bulk. Neuro: cranial nerves II XII grossly intact. Intact gross motor and sensory function. Psych: Appropriate mood and appropriate affect. Skin: Mild pallor. No petechiae. : +right sided CVA/flank tenderness. Labs/Imaging/Other Tests: Personally reviewed/interpreted. hest x-ray no acute cardiopulmonary abnormality. Personally interpreted. Abdomen ultrasound-no acute abnormality. Bilateral nonobstructive nephrolithiasis without hydronephrosis. Hepatic steatosis. Atrophic spleen. Resp panel - negative. Objective: Vital Signs Temp Pulse Resp BP Pulse Ox 37.5 C 100 17 98/73 L 100 07/31/18 12:00 07/31/18 12:00 07/31/18 12:00 07/31/18 12:00 07/31/18 12:00 Microbiology 07/30/18 17:15 Respiratory Panel (PCR) - Final Nasal, Sinus - Swab No Organism Detected By Pcr Laboratory Results 07/31/18 05:00 07/31/18 05:00 07/30/18 07/31/18 08/01/18 05:59 05:59 05:59 Intake Total 1500 120 Output Total 600 600 Balance 900 -480 - Time Spent With Patient Time Spent with Patient: greater than 35 minutes Time Spent with Patient: Greater than 35 minutes spent on this patients care, greater than 50% of time spent counseling, educating, and coordinating care regarding the above mentioned plan. ICD10 Worksheet Patient Problems: Problems Problem Status Onset Calculus of left kidney Acute Chest pain Acute Fever Acute Hydronephrosis with ureteral calculus Acute Leukopenia Acute Nephrolithiasis Acute Renal colic on right side Acute UTI (lower urinary tract infection) Acute
[2018-07-31] MEDS ORDERED: PROCHLORPERAZINE MALEATE 10 MG TAB PO PRN (13:21)
--- NOTE | 2018-07-31 14:38 | GCON ---
MEDICAL ONCOLOGY FOLLOWUP CONSULTATION DATE OF CONSULTATION: 07/31/2018 REASON FOR CONSULTATION: Ongoing followup and management of breast cancer and neutropenic fever. RECOMMENDATIONS: 1. Agree with cultures and empiric antibiotic therapy. 2. Because of the patient's right-sided flank pain and drop in her hemoglobin, I agree with the CT o f her abdomen and pelvis for further evaluation. 3. The patient did receive Neulasta with her last cycle of chemotherapy. She was given doxorubicin cyclophosphamide on the 22 July 2018. Therefore, she does not require additional G-CSF at this time. 4. She is due to start the Taxol portion of her chemotherapy on the 05 August 2018. However, that will likely need to be delayed. ASSESSMENT: This 63-year-old woman who is primarily cared for by Dr. Arun Nam in [place] for her right-sided breast cancer is now admitted with neutropenic fever. She complained of dark colored ur ine as well as right flank pain. She also developed temperature over [address]. She ca lled Dr. Nam who recommended she come to the emergency room for further evaluation. She was admitte d and on admission was found to have a total white blood cell count of 0.27 with a hemoglobin of 10.2 and a platelet count of 156,000. The following day, which is today, her white count was 0.52, but h er hemoglobin had fallen to 7.5 with a platelet count of 124,000. Her lactic acid was initially elev ated at 2.4 but is now 1.3. Her renal function is adequate with a creatinine of 0.5. Her BUN is low at 2.7. Her urinalysis did not show any obvious infection. She did have blood cultures drawn, and they are pending. She also had a respiratory panel by PCR and no organisms were detected. On her pr evious admission, she was admitted with parainfluenza. The patient is currently getting dose dense AC Taxol. She completed her 4th cycle of AC on the 22 July 2018. She is due to start the dose dense Taxol portion on Friday of next week, but this will likely need to be pushed out because of her neutropenic fever. The patient's only real localizi ng symptom at this point is her right flank pain. This will be evaluated with a CT of the abdomen an d pelvis later on today. Upon discharge she will return to the oncologic care of Dr. Terrence Nam. HISTORY OF PRESENT ILLNESS: Please see assessment. PAST MEDICAL HISTORY: Remarkable for a stage I (T1c N0 M0) right-sided infiltrating lobular carcinom a that was triple negative. She was treated with lumpectomy. She is in the midst of adjuvant therap y at this point. Her past medical history otherwise is remarkable for congenital medullary sponge ki dney, bilateral nephrolithiasis, hiatal hernia, multiple urinary tract infections and hypothyroidism. SOCIAL HISTORY: She does not smoke. She is and lives near the [facility]. FAMILY HISTORY: Remarkable for a maternal grandmother with DCIS. Her mother apparently had renal ce ll carcinoma at age 59. REVIEW OF SYSTEMS: Remarkable for the above-mentioned fever, right-sided flank pain, and occasional urinary urgency. Her vital signs at this time show a blood pressure of 98/73 with a heart rate of 10 0. Her temperature is 37.5 degrees centigrade at this time. Her CBC as mentioned above shows a whit e count of 520 with absolute neutrophils of approximately . Her hemoglobin went from 10.2 to 7.5, and her platelets went from 156 to 124. Her creatinine is 0.5. Her ALT is normal at 13, and her AST is slightly low at 8. Her albumin is also low at 2.7. Her chest x-ray showed stable fibrot ic changes at the left base but otherwise was unremarkable. Her abdominal ultrasound yesterday showe d no cholelithiasis or biliary dilation. She had some fatty changes in her liver. Her spleen is atr ophic, and she had bilateral nonobstructive nephrolithiasis. There was no aortic aneurysm noted. Thank you very much for allowing us to participate in her care during this hospitalization and as nee ded beyond. /[id number]/MODL
[2018-07-31] MEDS: CETIRIZINE 10 MG TAB PO SCH ×2 (15:48→15:52)
--- NOTE | 2018-07-31 16:17 | ASMTCMCOM ---
CM Note CM Note Notes: Pt in for neutropenia fever, was at [facility] in June 2018 for same, d/c independent then. Pt with breast CA and undergoing chemo treatments. No therapies ordered. CM to follow pt progress. D/c plan is TBD. Date Signed: 07/31/2018 04:16 PM Electronically Signed By:KOKI Lerner
[2018-07-31] MEDS: LEVOTHYROXINE 50 MCG TAB PO SCH (21:04)
[2018-07-31] MEDS: LORazepam 1 MG TAB PO PRN (21:04)
[2018-07-31] MEDS ORDERED: PREPARATION H 51 GM CRTUBE PR PRN (23:10)
[2018-08-01] MEDS: LORazepam 2 MG/ML INJ IVP PRN (02:57)
[2018-08-01] MEDS: CEFEPIME HCL 2 GM in NS 100 ML IV SCH ×3 (05:03→21:07)
[2018-08-01 07:01] LABS: PLATELET COUNT 134 10^3/uL (150-400)
[2018-08-01] MEDS: ENOXAPARIN 40 MG/0.4 ML SYR SC SCH (08:09)
[2018-08-01] MEDS: LORazepam 1 MG TAB PO PRN ×2 (08:15→16:44)
[2018-08-01] MEDS: MULTIVITAMINS 1 EACH TAB PO SCH (08:16)
[2018-08-01] MEDS: FLUCONAZOLE 100 MG TAB PO SCH (08:16)
[2018-08-01] MEDS: TAMSULOSIN HCL 0.4 MG CAP PO SCH (08:16)
[2018-08-01] MEDS: CHOLECALCIFEROL VIT D3 1,000 UNITS TAB PO SCH (08:16)
[2018-08-01] MEDS: CETIRIZINE 10 MG TAB PO SCH (08:16)
[2018-08-01] MEDS: NS W/ 20 KCl/L 1,000 ML IV SCH (09:52)
--- NOTE | 2018-08-01 12:05 | SOAPPROG ---
SOAP Progress Note Assessment/Plan: Assessment: 1) Stage 1 triple negative breast cancer 2) Neutropenic fever (s/p recent dose dense AC ) 3) Chemo induced anemia 4) Chronic nephrolithiasis Plan: Overall better. Continue hydration and Abx. Her CT demonstrates non obstructive nephrolithiais. Hopefully this resolves with hydration. Anemia is symptomatic. Discussed option of PRBC transfusion. She consents. Will give 1 unit PRBC's today. WBC count is improving. Growth factor was given with her regimen. No obvious source of fever. Continue empiric abx. Her questions were answered. 08/01/18 12:01 Subjective: Feels tired. Denies n/v, diarrhea. Still with flank pain. No hematuria Objective: Vital Signs Temp Pulse Resp BP Pulse Ox 37.0 C 96 17 99/71 L 97 08/01/18 08:00 08/01/18 08:00 08/01/18 08:00 08/01/18 08:00 08/01/18 08:00 Laboratory Results 08/01/18 05:30 07/31/18 05:00 07/31/18 08/01/18 08/02/18 05:59 05:59 05:59 Intake Total 1500 2070 1200 Output Total 600 1500 Balance 361 438 1135 - Time Spent With Patient Time Spent With Patient: 25 minutes Physical Exam - Physical Exam General Appearance: alert, no apparent distress EENT: pale conjunctiva (R), pale conjunctiva (L) Respiratory: lungs clear Cardiac/Chest: regular rate, rhythm Abdomen: non-tender, soft Skin: pallor Neuro/Psych: alert, normal mood/affect ICD10 Worksheet Patient Problems: Problems Problem Status Onset Calculus of left kidney Acute Chest pain Acute Fever Acute Hydronephrosis with ureteral calculus Acute Leukopenia Acute Nephrolithiasis Acute Renal colic on right side Acute UTI (lower urinary tract infection) Acute
--- NOTE | 2018-08-01 14:28 | HOSPPROG ---
Hospitalist Progress Note Assessment/Plan: 63yo F with breast cancer on chemotherapy here with neutropenic fever. 1. Neutropenic fever: ANC remains <500, low grade temps. No obvious source, suspect mucositis vs related. - Continue cefepime, follow blood cultures 2. Right flank pain: CT showed non-obstructing stone. No e/o hydro - IVF, flomax, pain mgmt 3. Anemia: Hgb 6.9 this AM. No e/o bleeding. Likely chemo-induced - Transfuse 1u PRBC today 4. Mucositis: chemo-induced - Magic mouthwash and saline rinses 5. Bone pain: Continue antihistamine 6. Triple negative breast cancer: Oncology following. 7. H/o medullary sponge kidney disease 8. Hypothyroid: Continue home LT4 replacement VTE ppx: LMWH Code: full Dispo: Remain inpatient due to ongoing neutropenia and need for IV antibiotics Subjective: Fatigued, lethargic. Mucositis better, eating some. Nausea constant but no emesis. No true fever but temp 37.6 Objective: Vital Signs Temp Pulse Resp BP Pulse Ox 37.0 C 107 H 16 90/60 L 98 08/01/18 12:00 08/01/18 12:00 08/01/18 12:00 08/01/18 12:00 08/01/18 12:00 Laboratory Results 08/01/18 05:30 07/31/18 05:00 07/31/18 08/01/18 08/02/18 05:59 05:59 05:59 Intake Total 1500 2070 1200 Output Total 600 1500 1250 Balance 900 570 -50 - Physical Exam Constitutional: no apparent distress, chronically ill appearing Eyes: PERRL, anicteric sclera, EOMI Ears, Nose, Mouth, Throat: other (mucositis) Cardiovascular: regular rate and rhythym, no murmur, rub, or gallop Respiratory: no respiratory distress, no rales or rhonchi, clear to auscultation Gastrointestinal: normoactive bowel sounds, soft, non-tender abdomen, no palpable masses Genitourinary: no bladder fullness, no bladder tenderness, no renal bruits Skin: other (chest port c/d/i) Musculoskeletal: full muscle strength, no muscle tenderness, normal joint ROM Neurologic: AAOx3, sensation intact bilaterally Psychiatric: interacting appropriately, not anxious, not encephalopathic, thought process linear ICD10 Worksheet Patient Problems: Problems Problem Status Onset Calculus of left kidney Acute Chest pain Acute Fever Acute Hydronephrosis with ureteral calculus Acute Leukopenia Acute Nephrolithiasis Acute Renal colic on right side Acute UTI (lower urinary tract infection) Acute
[2018-08-01] MEDS: DIAZEPAM 5 MG TAB PO PRN (21:06)
[2018-08-01] MEDS: LEVOTHYROXINE 50 MCG TAB PO SCH (21:07)
[2018-08-02] MEDS: NS W/ 20 KCl/L 1,000 ML IV SCH ×3 (00:26→22:12)
[2018-08-02] MEDS: CEFEPIME HCL 2 GM in NS 100 ML IV SCH ×3 (04:53→22:12)
[2018-08-02 06:53] LABS: PLATELET COUNT 162 10^3/uL (150-400)
[2018-08-02] MEDS: LORazepam 1 MG TAB PO PRN ×2 (07:48→20:08)
[2018-08-02] MEDS: TAMSULOSIN HCL 0.4 MG CAP PO SCH (09:30)
[2018-08-02] MEDS: CHOLECALCIFEROL VIT D3 1,000 UNITS TAB PO SCH (09:30)
[2018-08-02] MEDS: CETIRIZINE 10 MG TAB PO SCH (09:30)
[2018-08-02] MEDS: FLUCONAZOLE 100 MG TAB PO SCH (09:30)
[2018-08-02] MEDS: MULTIVITAMINS 1 EACH TAB PO SCH (09:30)
[2018-08-02] MEDS: ENOXAPARIN 40 MG/0.4 ML SYR SC SCH (09:30)
--- NOTE | 2018-08-02 09:38 | SOAPPROG ---
SOAP Progress Note Assessment/Plan: Assessment: 1) Stage 1 triple negative breast cancer 2) Neutropenic fever (s/p recent dose dense AC ) 3) Chemo induced anemia 4) Chronic nephrolithiasis Plan: Overall better. Continue hydration and Abx. I think that it would be reasonable to switch her to an oral abx today such as Levaquin. Her CT demonstrates non obstructive nephrolithiais. Continue hydration. Good response to PRBC transfusion yesterday. No indication for further transfusion today. Her neutropenia has resolved. She is ok for d/c from an Oncology standpoint. She remains weak and fatigued with poor oral intake. She would like to see how she progresses as the day goes on. Possible d/c this evening or tomorrow. She will follow up with Dr. Nam after d/c. Case d/w nursing Her questions were answered. 08/01/18 12:01 08/02/18 09:33 Subjective: Feels somewhat better. Remains fatigued. Still with mild Right flank pain. at bedside. Objective: Vital Signs Temp Pulse Resp BP Pulse Ox 36.6 C 92 16 111/81 H 97 08/02/18 07:56 08/02/18 07:56 08/02/18 07:56 08/02/18 07:56 08/02/18 07:56 Laboratory Results 08/02/18 06:00 07/31/18 05:00 08/01/18 08/02/18 08/03/18 05:59 05:59 05:59 Intake Total 2070 1700 Output Total 1500 1925 1650 Balance [phone] - Time Spent With Patient Time Spent With Patient: 25 minutes Physical Exam - Physical Exam General Appearance: alert, no apparent distress EENT: PERRL/EOMI Abdomen: non-tender, soft, other (Mild Right flank tenderness. No rebound tenderness) Skin: normal color Neuro/Psych: alert, normal mood/affect ICD10 Worksheet Patient Problems: Problems Problem Status Onset Calculus of left kidney Acute Chest pain Acute Fever Acute Hydronephrosis with ureteral calculus Acute Leukopenia Acute Nephrolithiasis Acute Renal colic on right side Acute UTI (lower urinary tract infection) Acute
[2018-08-02] MEDS ORDERED: BISACODYL 10 MG SUPP PR PRN (10:36)
[2018-08-02] MEDS ORDERED: LACTULOSE 20 GM/30 ML UDCUP PO PRN (10:36)
[2018-08-02] MEDS ORDERED: MAGNESIUM HYDROXIDE 30 ML UDCUP PO PRN (10:36)
[2018-08-02] MEDS ORDERED: POLYETHYLENE GLYCOL 3350 17 GM PKT PO PRN (10:36)
--- NOTE | 2018-08-02 13:29 | ASMTCMCOM ---
CM Note CM Note Notes: Plan of care reviewed in rounds. She is admitted with neutropenic fever and per her oncologist is medically clear for discharge later today or tomorrow. No current needs identified. CM available should needs arise. Plan: Likely to dc to home with no needs once medically cleared. Date Signed: 08/02/2018 01:28 PM Electronically Signed By:Lashon Ojeda RN
[2018-08-02] MEDS ORDERED: SCOPOLAMINE HYDROBROMIDE 1 MG/3 DAYS PATCH TD SCH (14:45)
--- NOTE | 2018-08-02 17:10 | HOSPPROG ---
Hospitalist Progress Note Assessment/Plan: 63yo F with breast cancer on chemotherapy here with neutropenic fever. 1. Neutropenic fever: No longer neutropenic, no fevers. No obvious source, suspect mucositis vs related. - Continue cefepime, blood cultures NGTD 2. Right flank pain: CT showed non-obstructing stone. No e/o hydro - IVF, flomax, pain mgmt (limit morphine IV as able) 3. Anemia: S/p 1u PRBC 08/01 with good respons. No e/o bleeding. Likely chemo- induced - Recheck daily 4. Mucositis: chemo-induced, better - Magic mouthwash and saline rinses 5. Bone pain: Continue antihistamine 6. Triple negative breast cancer: Oncology following. 7. H/o medullary sponge kidney disease 8. Hypothyroid: Continue home LT4 replacement VTE ppx: LMWH Code: full Dispo: Remain inpatient, unsafe for dc as not tolerating PO. hopefully can dc tomorrow if symptomatically better Subjective: Overall a little better. Feels like she's having low grade temps. Not eating a ton. Nausea constant. Objective: Vital Signs Temp Pulse Resp BP Pulse Ox 37.2 C 84 15 113/81 H 97 08/02/18 16:22 08/02/18 16:22 08/02/18 16:22 08/02/18 16:22 08/02/18 16:22 Laboratory Results 08/02/18 06:00 07/31/18 05:00 08/01/18 08/02/18 08/03/18 05:59 05:59 05:59 Intake Total 2070 1700 650 Output Total 1500 1925 3351 Balance [phone] - Physical Exam Constitutional: no apparent distress, other (frail) Eyes: PERRL, anicteric sclera, EOMI Ears, Nose, Mouth, Throat: dry mucous membranes, other (mucositis) Cardiovascular: regular rate and rhythym, no murmur, rub, or gallop Respiratory: no respiratory distress, no rales or rhonchi, clear to auscultation Gastrointestinal: normoactive bowel sounds, soft, non-tender abdomen, no palpable masses Genitourinary: no bladder fullness, no bladder tenderness, no renal bruits Skin: no rashes or abrasions, no fluctuance, no induration Musculoskeletal: full muscle strength, no muscle tenderness, normal joint ROM Neurologic: AAOx3, sensation intact bilaterally Psychiatric: interacting appropriately, not anxious, not encephalopathic, thought process linear ICD10 Worksheet Patient Problems: Problems Problem Status Onset Calculus of left kidney Acute Chest pain Acute Fever Acute Hydronephrosis with ureteral calculus Acute Leukopenia Acute Nephrolithiasis Acute Renal colic on right side Acute UTI (lower urinary tract infection) Acute
[2018-08-02] MEDS: SENNOSIDES/DOCUSATE SODIUM TAB PO SCH (20:02)
[2018-08-02] MEDS: LEVOTHYROXINE 50 MCG TAB PO SCH (20:08)
[2018-08-02] MEDS: DIAZEPAM 5 MG TAB PO PRN (20:08)
[2018-08-03] MEDS: CEFEPIME HCL 2 GM in NS 100 ML IV SCH (06:35)
[2018-08-03] MEDS: CHOLECALCIFEROL VIT D3 1,000 UNITS TAB PO SCH (08:52)
[2018-08-03] MEDS: MULTIVITAMINS 1 EACH TAB PO SCH (08:53)
[2018-08-03] MEDS: FLUCONAZOLE 100 MG TAB PO SCH (08:53)
[2018-08-03] MEDS: CETIRIZINE 10 MG TAB PO SCH (08:53)
[2018-08-03] MEDS: LORazepam 1 MG TAB PO PRN (08:58)
[2018-08-03] MEDS: ENOXAPARIN 40 MG/0.4 ML SYR SC SCH (08:58)
[2018-08-03 09:03] VITALS: BP 129/86
[2018-08-03] MEDS: SENNOSIDES/DOCUSATE SODIUM TAB PO SCH (09:14)
[2018-08-03] MEDS: TAMSULOSIN HCL 0.4 MG CAP PO SCH (09:14)
--- NOTE | 2018-08-03 12:18 | ASDISCHSUM ---
Discharge Information Plan Status:Home with No Needs Medically Cleared to Leave:08/02/2018 Discharge Date:08/03/2018 11:08 AM CM D/C Disposition:Home, Routine, Self-Care ADT D/C Disposition:Home, Routine, Self-Care Projected Discharge Date:08/03/2018 12:00 AM Transportation at D/C:Family Discharge Delay Reason: Follow-Up Date:08/03/2018 12:00 AM Discharge Slot:1 - 8:01 am - 12:00 noon Final Diagnosis:neutropenic fever, current breast ca Placement Information Patient Contact Information Contact Name:SHEY Relationship: Address:[address] [place] [address] [facility] [address] Work Phone: City:[facility] Phone: [facility]/Zip Code:[place] [address] Email: Financial Information Financial Class:Medicare Primary Plan Desc:MEDICARE INPATIENT Primary Plan Number:[id number] Secondary Plan Desc:[facility] [employer] Secondary Plan Number:[id number] Assessment Information [facility] CM Progress Note CM Note CM Note Notes: Pt in for neutropenia fever, was at [facility] in June 2018 for same, d/c independent then. Pt with breast CA and undergoing chemo treatments. No therapies ordered. CM to follow pt progress. D/c plan is TBD. Date Signed: 07/31/2018 04:16 PM Electronically Signed By:KOKI Lerner [facility] CM Progress Note CM Note CM Note Notes: Plan of care reviewed in rounds. She is admitted with neutropenic fever and per her oncologist is medically clear for discharge later today or tomorrow. No current needs identified. CM available should needs arise. Plan: Likely to dc to home with no needs once medically cleared. Date Signed: 08/02/2018 01:28 PM Electronically Signed By:Lashon Ojeda RN Intervention Information Intervention Type:*IM-Signed Date of Service:08/03/2018 10:27 AM Patient Type:Inpatient Staff Member:Suri Rodrigues Hours: Discipline: Severity: Comment:IM delivered and signed for receipt, dulce vail in back of chart.
--- NOTE | 2018-08-03 12:18 | ASMTDCNOTE ---
Case Management Discharge Discharge Order Complete? Answers: Yes Patient to Obtain Answers: via Family Medications Transportation Arranged Answers: Family/Friends Family Notified Answers: Yes Discharge Comments Notes: CM met with patient prior to discharge. Patient states her will be picking her up, will be support in following up with recommended next steps. IM delivered and signed for receipt. CM available to support if any additional CM needs arise. Date Signed: 08/03/2018 12:17 PM Electronically Signed By:Suri Rodrigues
[2018-08-03] MEDS ORDERED: PATCH REMOVAL 1 EA PATCH TD ONE (14:31)
[2018-08-05] MEDS ORDERED: PATCH REMOVAL 1 EA PATCH TD SCH (14:31)
== END 2018-08-03 11:08 | disposition home or self-care (01) | DRG 809 ==
LOC: F1N 14:33
PROVIDERS: ADMIT Internal Medicine; ATTEND Internal Medicine
PROC: 30233N1 Transfusion of Nonautologous Red Blood Cells into Peripheral Vein, Percutaneous Approach (ICD-10-PCS; principal; 2018-08-01)
DX: D70.1 Agranulocytosis secondary to cancer chemotherapy (principal); R50.81 Fever presenting with conditions classified elsewhere; D64.81 Anemia due to antineoplastic chemotherapy; K12.31 Oral mucositis (ulcerative) due to antineoplastic therapy; T45.1X5A Adverse effect of antineoplastic and immunosuppressive drugs, initial encounter; C50.911 Malignant neoplasm of unspecified site of right female breast; Q61.5 Medullary cystic kidney; N20.0 Calculus of kidney; E03.9 Hypothyroidism, unspecified; K44.9 Diaphragmatic hernia without obstruction or gangrene
CPT/HCPCS: J0692; J1642; J1650; J2060; J2270; P9016